=== PATIENT | female | born 1990 | race Caucasian/White ===

== ENCOUNTER 2016-08-28 00:10 | Inpatient (IN) | payer MEDICAID, OTHER ==
[~2016-08-28] VITALS: Ht 154.9 cm; Wt 89.3 kg
[~2016-08-28 00:10] MED LIST: ALBU6.7H IH; CITA10TA68 PO; DIVA500T52 PO; DSS100 PO; MACR100 PO; OMEP20 PO; QUET300T2 PO
[2016-08-28] MEDS ORDERED: DiphenhydrAMINE HCL 50 MG/ML VIAL IM ONE (00:45)
[2016-08-28] MEDS ORDERED: HALOPERIDOL LACTATE 5 MG/ML VIAL IM ONE (00:45)
[2016-08-28] MEDS ORDERED: LORazepam 2 MG/ML VIAL IM ONE (00:45)
[2016-08-28 01:35] LABS: BASOPHILS # (AUTO) 0.03 K/uL (0.00-0.20); BASOPHILS % (AUTO) 0.5 % (0.0-2.0); EOSINOPHILS # (AUTO) 0.23 K/uL (0.00-0.70); EOSINOPHILS % (AUTO) 3.68 % (1.0-6.0); HEMATOCRIT 35.7 % (36-46); HEMOGLOBIN 11.8 g/dL (12.0-16.0); LYMPHOCYTES # (AUTO) 1.4 K/uL (1.0-4.8); LYMPHOCYTES % (AUTO) 22.1 % (22.0-44.0); MEAN CORPUSCULAR HEMOGLOBIN 27.8 pg (26.0-34.0); MEAN CORPUSCULAR HGB CONC 33.2 G/dL (31.0-37.0); MEAN CORPUSCULAR VOLUME 84 fL (80-100); MONOCYTES # (AUTO) 0.5 K/uL (0.1-1.0); MONOCYTES % (AUTO) 7.6 % (2.0-9.0); NEUTROPHILS # (AUTO) 4.2 K/uL (1.8-7.7); NEUTROPHILS % (AUTO) 66.2 % (40.0-70.0); PLATELET COUNT (AUTO) 273 K/uL (150-450); RED BLOOD CELL COUNT(AUTO) 4.26 MIL/uL (4.00-5.20); RED CELL DISTRIBUTION WIDTH 16.1 % (11.5-14.5); WHITE BLOOD COUNT (AUTO) 6.4 K/uL (4.5-11.0)
[2016-08-28 01:48] LABS: ANION GAP 12 mmol/L (8-16); CALCIUM, TOTAL 8.7 mg/dL (8.8-10.5); CARBON DIOXIDE 24 mmol/L (22-29); CHLORIDE 108 mmol/L (98-107); CREATININE 0.93 mg/dL (0.60-1.30); GLOMERULAR FILTR. RATE CALC > 60 mL/min (>60); POTASSIUM 3.3 mmol/L (3.5-5.1); SODIUM SERUM 144 mmol/L (136-145); UREA NITROGEN, BLOOD 9 mg/dL (7-18)
[2016-08-28 01:53] LABS: ALANINE AMINOTRANSFERASE 28 U/L (12-78); ALBUMIN 3.6 g/dL (3.4-5.0); ASPARTATE AMINOTRANSFERASE 17 U/L (15-37); BILIRUBIN,TOTAL 0.2 mg/dL (0.1-1.0)
[2016-08-28 02:07] LABS: VALPROIC ACID < 3 mcg/mL (50-100)
[2016-08-28] MEDS ORDERED: HALOPERIDOL 5 MG TABLET PO PRN (02:15)
[2016-08-28] MEDS ORDERED: ACETAMINOPHEN 325 MG TABLET PO PRN (13:30)
[2016-08-28 13:51] VITALS: BP 136/78
[2016-08-28] MEDS ORDERED: POTASSIUM CHLORIDE 20 MEQ ER TABLET PO ONE (14:15)
[2016-08-28] MEDS: NICOTINE 14 MG/24 HOUR PATCH TD SCH (14:17)
[2016-08-28] MEDS ORDERED: INFLUENZA VIRUS VACCINE QVS 2016-17 (3YR+)/PF 60 MCG/0.5 ML SYRINGE IM ONE (15:00)
[2016-08-28] MEDS ORDERED: -PHARMACY VACCINE NOTE- MISC ONE ×2 (15:00)
[2016-08-28 16:10] VITALS: BP 114/67
[2016-08-28] MEDS: ZOLPIDEM TARTRATE 10 MG TABLET PO PRN (20:20)
[2016-08-29 06:56] VITALS: BP 125/72
[2016-08-29] MEDS: NICOTINE 14 MG/24 HOUR PATCH TD SCH (08:27)
[2016-08-29 08:28] VITALS: BP 134/87
[2016-08-29 08:43] LABS: ALANINE AMINOTRANSFERASE 20 U/L (12-78); ALBUMIN 3.8 g/dL (3.4-5.0); ANION GAP 10 mmol/L (8-16); ASPARTATE AMINOTRANSFERASE 17 U/L (15-37); BILIRUBIN,TOTAL 0.3 mg/dL (0.1-1.0); CALCIUM, TOTAL 8.8 mg/dL (8.8-10.5); CARBON DIOXIDE 26 mmol/L (22-29); CHLORIDE 103 mmol/L (98-107); CREATININE 0.68 mg/dL (0.60-1.30); GLOMERULAR FILTR. RATE CALC > 60 mL/min (>60); POTASSIUM 4.9 mmol/L (3.5-5.1); SODIUM SERUM 139 mmol/L (136-145); TOTAL PROTEIN, SERUM 6.9 g/dL (6.4-8.2); UREA NITROGEN, BLOOD 11 mg/dL (7-18)
[2016-08-29] MEDS: LORazepam 2 MG TABLET PO PRN ×2 (10:45→16:08)
[2016-08-29] MEDS: QUEtiapine FUMARATE 200 MG TABLET PO SCH (16:07)
[2016-08-29 16:18] VITALS: BP 117/70
[2016-08-29] MEDS: DIVALPROEX SODIUM 500 MG DR TABLET PO SCH (20:28)
[2016-08-30 06:34] VITALS: BP 112/73
[2016-08-30] MEDS: QUEtiapine FUMARATE 200 MG TABLET PO SCH ×2 (08:26→16:10)
[2016-08-30] MEDS: DOCUSATE SODIUM 100 MG CAPSULE PO SCH (08:26)
[2016-08-30] MEDS: OMEPRAZOLE 20 MG CAPSULE PO SCH (08:26)
[2016-08-30] MEDS: NICOTINE 14 MG/24 HOUR PATCH TD SCH (08:27)
[2016-08-30 09:07] VITALS: BP 100/59
[2016-08-30] MEDS: LORazepam 2 MG TABLET PO PRN ×2 (11:44→16:10)
[2016-08-30 16:09] VITALS: BP 122/86
[2016-08-30] MEDS: DIVALPROEX SODIUM 500 MG DR TABLET PO SCH (20:06)
[2016-08-30] MEDS: ZOLPIDEM TARTRATE 10 MG TABLET PO PRN (21:04)
[2016-08-31 06:47] VITALS: BP 116/68
[2016-08-31] MEDS: LORazepam 2 MG TABLET PO PRN ×3 (07:13→16:50)
[2016-08-31 08:13] VITALS: BP 113/76
[2016-08-31] MEDS: DOCUSATE SODIUM 100 MG CAPSULE PO SCH (08:30)
[2016-08-31] MEDS: QUEtiapine FUMARATE 200 MG TABLET PO SCH ×2 (08:30→16:50)
[2016-08-31] MEDS: OMEPRAZOLE 20 MG CAPSULE PO SCH (08:30)
[2016-08-31] MEDS: NICOTINE 14 MG/24 HOUR PATCH TD SCH (08:31)
[2016-08-31 16:06] VITALS: BP 118/73
[2016-08-31] MEDS: DIVALPROEX SODIUM 500 MG DR TABLET PO SCH (21:00)
[2016-09-01 07:02] VITALS: BP 114/66
[2016-09-01] MEDS: DOCUSATE SODIUM 100 MG CAPSULE PO SCH (08:26)
[2016-09-01] MEDS: OMEPRAZOLE 20 MG CAPSULE PO SCH (08:26)
[2016-09-01] MEDS: QUEtiapine FUMARATE 200 MG TABLET PO SCH ×2 (08:27→16:34)
[2016-09-01] MEDS: NICOTINE 14 MG/24 HOUR PATCH TD SCH (08:27)
[2016-09-01] MEDS: LORazepam 2 MG TABLET PO PRN (10:35)
[2016-09-01] MEDS ORDERED: HALOPERIDOL LACTATE 5 MG/ML VIAL IM ONE ×2 (16:00→16:15)
[2016-09-01] MEDS ORDERED: LORazepam 2 MG/ML VIAL IM ONE (16:00)
[2016-09-01 16:04] VITALS: BP 118/67
[2016-09-01 16:35] VITALS: BP 124/74
[2016-09-01] MEDS: DIVALPROEX SODIUM 500 MG DR TABLET PO SCH (21:00)
[2016-09-02 08:02] VITALS: BP 114/71
[2016-09-02] MEDS: QUEtiapine FUMARATE 200 MG TABLET PO SCH ×2 (09:07→16:13)
[2016-09-02] MEDS: OMEPRAZOLE 20 MG CAPSULE PO SCH (09:07)
[2016-09-02] MEDS: NICOTINE 14 MG/24 HOUR PATCH TD SCH (09:07)
[2016-09-02] MEDS: LORazepam 2 MG TABLET PO PRN ×2 (09:07→14:18)
[2016-09-02] MEDS: DOCUSATE SODIUM 100 MG CAPSULE PO SCH (09:07)
[2016-09-02 16:07] VITALS: BP 120/86
[2016-09-02] MEDS: DIVALPROEX SODIUM 500 MG DR TABLET PO SCH (20:12)
[2016-09-02] MEDS: ZOLPIDEM TARTRATE 10 MG TABLET PO PRN (21:00)
[2016-09-03 07:11] VITALS: BP 110/73
[2016-09-03] MEDS: DOCUSATE SODIUM 100 MG CAPSULE PO SCH (08:19)
[2016-09-03] MEDS: NICOTINE 14 MG/24 HOUR PATCH TD SCH (08:19)
[2016-09-03] MEDS: QUEtiapine FUMARATE 200 MG TABLET PO SCH ×2 (08:19→16:51)
[2016-09-03] MEDS: OMEPRAZOLE 20 MG CAPSULE PO SCH (08:19)
[2016-09-03 08:52] VITALS: BP 119/71
[2016-09-03] MEDS: LORazepam 2 MG TABLET PO PRN ×2 (09:12→16:51)
[2016-09-03 16:03] VITALS: BP 116/84
[2016-09-03] MEDS ORDERED: DOCUSATE SODIUM 100 MG CAPSULE PO PRN (17:30)
[2016-09-03] MEDS: DIVALPROEX SODIUM 500 MG DR TABLET PO SCH (20:08)
[2016-09-04 07:07] VITALS: BP 110/72
[2016-09-04] MEDS: OMEPRAZOLE 20 MG CAPSULE PO SCH (08:18)
[2016-09-04] MEDS: NICOTINE 14 MG/24 HOUR PATCH TD SCH (08:18)
[2016-09-04] MEDS: DOCUSATE SODIUM 100 MG CAPSULE PO SCH (08:18)
[2016-09-04] MEDS: QUEtiapine FUMARATE 200 MG TABLET PO SCH (08:18)
[2016-09-04 09:04] VITALS: BP 112/59
== END 2016-09-04 12:53 | disposition home or self-care (01) | DRG 753 ==
LOC: EMS 00:12 → EEVIPCON 00:12 → B3A 11:55
PROVIDERS: ADMIT Psychiatry & Neurology Psychiatry; ATTEND Psychiatry & Neurology Psychiatry
DX: F31.9 Bipolar disorder, unspecified (principal); R45.851 Suicidal ideations; E55.9 Vitamin D deficiency, unspecified; F43.10 Post-traumatic stress disorder, unspecified; K59.00 Constipation, unspecified; E66.9 Obesity, unspecified; D64.9 Anemia, unspecified; E87.6 Hypokalemia; K64.9 Unspecified hemorrhoids; J45.909 Unspecified asthma, uncomplicated; F12.90 Cannabis use, unspecified, uncomplicated; F17.210 Nicotine dependence, cigarettes, uncomplicated; Z71.6 Tobacco abuse counseling; Z79.899 Other long term (current) drug therapy; Z98.890 Other specified postprocedural states; Z68.37 Body mass index [BMI] 37.0-37.9, adult; Z28.21 Immunization not carried out because of patient refusal; Z87.891 Personal history of nicotine dependence
CPT/HCPCS: 96372; 99285; G0480; J1200; J1630; J2060

== ENCOUNTER 2016-09-09 11:11 | Inpatient (IN) | payer MEDICAID, OTHER ==
[~2016-09-09] VITALS: Ht 154.9 cm; Wt 91.4 kg
[~2016-09-09 11:11] MED LIST changes: -ALBU6.7H IH; -CITA10TA68 PO; -MACR100 PO
[2016-09-09] MEDS ORDERED: CITA20TA9 PO (11:24)
[2016-09-09 11:43] LABS: BASOPHILS % (AUTO) 0.6 % (0.0-2.0); EOSINOPHILS % (AUTO) 0.8 % (1.0-6.0); HEMOGLOBIN 11.8 g/dL (12.0-16.0); LYMPHOCYTES # (AUTO) 1.6 K/uL (1.0-4.8); LYMPHOCYTES % (AUTO) 22.7 % (22.0-44.0); MEAN CORPUSCULAR HEMOGLOBIN 26.9 pg (26.0-34.0); MEAN CORPUSCULAR HGB CONC 32.7 G/dL (31.0-37.0); MEAN CORPUSCULAR VOLUME 82 fL (80-100); MONOCYTES # (AUTO) 0.4 K/uL (0.1-1.0); MONOCYTES % (AUTO) 5.3 % (2.0-9.0); NEUTROPHILS % (AUTO) 70.6 % (40.0-70.0); PLATELET COUNT (AUTO) 325 K/uL (150-450); RED BLOOD CELL COUNT(AUTO) 4.36 MIL/uL (4.00-5.20); RED CELL DISTRIBUTION WIDTH 14.8 % (11.5-14.5); WHITE BLOOD COUNT (AUTO) 7.1 K/uL (4.5-11.0)
[2016-09-09 12:07] LABS: ANION GAP 9 mmol/L (8-16); CALCIUM, TOTAL 9.5 mg/dL (8.8-10.5); CARBON DIOXIDE 28 mmol/L (22-29); CHLORIDE 104 mmol/L (98-107); CREATININE 0.75 mg/dL (0.60-1.30); GLOMERULAR FILTR. RATE CALC > 60 mL/min (>60); POTASSIUM 3.5 mmol/L (3.5-5.1); SODIUM SERUM 141 mmol/L (136-145); UREA NITROGEN, BLOOD 8 mg/dL (7-18)
[2016-09-09 12:13] LABS: ALANINE AMINOTRANSFERASE 30 U/L (12-78); ASPARTATE AMINOTRANSFERASE 19 U/L (15-37); BILIRUBIN,TOTAL 0.4 mg/dL (0.1-1.0); TOTAL PROTEIN, SERUM 7.7 g/dL (6.4-8.2)
[2016-09-09 12:22] LABS: VALPROIC ACID < 3 mcg/mL (50-100)
[2016-09-09 14:53] VITALS: BP 128/88
[2016-09-09] MEDS ORDERED: INFLUENZA VIRUS VACCINE QVS 2016-17 (3YR+)/PF 60 MCG/0.5 ML SYRINGE IM ONE (15:45)
[2016-09-09 16:00] VITALS: BP 117/88
[2016-09-09] MEDS: QUEtiapine FUMARATE 200 MG TABLET PO SCH (17:44)
[2016-09-09] MEDS: NICOTINE 14 MG/24 HOUR PATCH TD SCH (19:09)
[2016-09-09] MEDS: LORazepam 2 MG TABLET PO PRN (20:20)
[2016-09-10] MEDS: CITALOPRAM HYDROBROMIDE 20 MG TABLET PO SCH (08:42)
[2016-09-10] MEDS: QUEtiapine FUMARATE 200 MG TABLET PO SCH ×2 (08:42→17:50)
[2016-09-10] MEDS: NICOTINE 14 MG/24 HOUR PATCH TD SCH (08:43)
[2016-09-10 08:59] VITALS: BP 125/52
[2016-09-10] MEDS: HALOPERIDOL 5 MG TABLET PO PRN ×2 (12:30→15:00)
[2016-09-10] MEDS: LORazepam 2 MG TABLET PO PRN ×2 (12:30→14:58)
[2016-09-11] MEDS: LORazepam 2 MG TABLET PO PRN ×2 (07:51→15:59)
[2016-09-11] MEDS: QUEtiapine FUMARATE 200 MG TABLET PO SCH ×2 (07:51→16:11)
[2016-09-11] MEDS: CITALOPRAM HYDROBROMIDE 20 MG TABLET PO SCH (07:51)
[2016-09-11] MEDS: NICOTINE 14 MG/24 HOUR PATCH TD SCH (07:51)
[2016-09-11] MEDS: HALOPERIDOL 5 MG TABLET PO PRN (07:51)
[2016-09-11 08:30] VITALS: BP 126/71
[2016-09-11 16:00] VITALS: BP 118/70
[2016-09-11] MEDS ORDERED: MAGNESIUM CITRATE 300 ML ORAL SOLUTION PO ONE (17:15)
[2016-09-11] MEDS: ZOLPIDEM TARTRATE 10 MG TABLET PO PRN (21:08)
[2016-09-12] MEDS: QUEtiapine FUMARATE 200 MG TABLET PO SCH ×2 (08:24→16:14)
[2016-09-12] MEDS: LORazepam 2 MG TABLET PO PRN ×2 (08:24→15:42)
[2016-09-12] MEDS: CITALOPRAM HYDROBROMIDE 20 MG TABLET PO SCH (08:24)
[2016-09-12] MEDS: NICOTINE 14 MG/24 HOUR PATCH TD SCH (08:27)
[2016-09-12 08:30] VITALS: BP 127/95
[2016-09-12] MEDS ORDERED: QUET200T PO (11:00)
[2016-09-12] MEDS: HALOPERIDOL 5 MG TABLET PO PRN ×2 (11:19→19:33)
[2016-09-12 16:00] VITALS: BP 110/77
[2016-09-13] MEDS: LORazepam 2 MG TABLET PO PRN ×2 (07:32→12:06)
[2016-09-13] MEDS: HALOPERIDOL 5 MG TABLET PO PRN ×3 (07:32→18:53)
[2016-09-13 08:05] VITALS: BP 109/67
[2016-09-13] MEDS: NICOTINE 14 MG/24 HOUR PATCH TD SCH (08:15)
[2016-09-13] MEDS: CITALOPRAM HYDROBROMIDE 20 MG TABLET PO SCH (08:16)
[2016-09-13] MEDS: QUEtiapine FUMARATE 200 MG TABLET PO SCH ×2 (08:16→16:04)
[2016-09-13 16:20] VITALS: BP 122/69
[2016-09-13] MEDS: ZOLPIDEM TARTRATE 10 MG TABLET PO PRN (20:39)
[2016-09-14] MEDS: HALOPERIDOL 5 MG TABLET PO PRN (07:59)
[2016-09-14] MEDS: LORazepam 2 MG TABLET PO PRN ×3 (07:59→20:26)
[2016-09-14 08:05] VITALS: BP 145/80
[2016-09-14] MEDS: QUEtiapine FUMARATE 200 MG TABLET PO SCH ×2 (08:41→16:35)
[2016-09-14] MEDS: CITALOPRAM HYDROBROMIDE 20 MG TABLET PO SCH (08:41)
[2016-09-14] MEDS: NICOTINE 14 MG/24 HOUR PATCH TD SCH (08:41)
[2016-09-14 17:08] VITALS: BP 121/65
[2016-09-14] MEDS: ZOLPIDEM TARTRATE 10 MG TABLET PO PRN (20:56)
[2016-09-15] MEDS: QUEtiapine FUMARATE 200 MG TABLET PO SCH ×2 (08:01→19:13)
[2016-09-15] MEDS: CITALOPRAM HYDROBROMIDE 20 MG TABLET PO SCH (08:01)
[2016-09-15] MEDS: NICOTINE 14 MG/24 HOUR PATCH TD SCH (08:02)
[2016-09-15 08:33] VITALS: BP 122/57
[2016-09-15] MEDS: MAGNESIUM HYDROXIDE SUSPENSION 30 ML UDCUP PO PRN (10:15)
[2016-09-15] MEDS: HALOPERIDOL 5 MG TABLET PO PRN (12:40)
[2016-09-15] MEDS: LORazepam 2 MG TABLET PO PRN (12:40)
[2016-09-15 16:33] VITALS: BP 119/68
[2016-09-16] MEDS: LORazepam 2 MG TABLET PO PRN ×2 (06:27→07:53)
[2016-09-16] MEDS: CITALOPRAM HYDROBROMIDE 20 MG TABLET PO SCH (07:53)
[2016-09-16] MEDS: NICOTINE 14 MG/24 HOUR PATCH TD SCH (07:53)
[2016-09-16] MEDS: QUEtiapine FUMARATE 200 MG TABLET PO SCH (07:53)
[2016-09-16] MEDS: HALOPERIDOL 5 MG TABLET PO PRN (07:53)
[2016-09-16] MEDS: MAGNESIUM HYDROXIDE SUSPENSION 30 ML UDCUP PO PRN (07:56)
[2016-09-16 09:00] VITALS: BP 99/58
== END 2016-09-16 15:40 | disposition home or self-care (01) | DRG 750 ==
LOC: EMS 11:12 → 3EC 14:01
PROVIDERS: ADMIT Psychiatry & Neurology Psychiatry; ATTEND Psychiatry & Neurology Psychiatry
DX: F25.9 Schizoaffective disorder, unspecified (principal); R45.851 Suicidal ideations; F22 Delusional disorders; D72.829 Elevated white blood cell count, unspecified; L30.9 Dermatitis, unspecified; F43.10 Post-traumatic stress disorder, unspecified; F31.9 Bipolar disorder, unspecified; F17.210 Nicotine dependence, cigarettes, uncomplicated; F19.10 Other psychoactive substance abuse, uncomplicated; Z71.89 Other specified counseling; Z28.21 Immunization not carried out because of patient refusal
CPT/HCPCS: 87081; 99285; G0480

== ENCOUNTER 2016-09-26 16:56 | Inpatient (IN) | payer MEDICAID, OTHER ==
[~2016-09-26] VITALS: Ht 154.9 cm; Wt 87.5 kg
[~2016-09-26 16:56] MED LIST changes: +CITA20TA9 PO; -DIVA500T52 PO; -DSS100 PO; -OMEP20 PO; +QUET200T PO; -QUET300T2 PO
[2016-09-26 19:33] LABS: BASOPHILS % (AUTO) 0.3 % (0.0-2.0); EOSINOPHILS % (AUTO) 0.7 % (1.0-6.0); HEMATOCRIT 33.7 % (36-46); LYMPHOCYTES # (AUTO) 1.4 K/uL (1.0-4.8); LYMPHOCYTES % (AUTO) 17.5 % (22.0-44.0); MEAN CORPUSCULAR HEMOGLOBIN 27.4 pg (26.0-34.0); MEAN CORPUSCULAR HGB CONC 32.7 G/dL (31.0-37.0); MEAN CORPUSCULAR VOLUME 84 fL (80-100); MONOCYTES # (AUTO) 0.4 K/uL (0.1-1.0); MONOCYTES % (AUTO) 5.1 % (2.0-9.0); NEUTROPHILS # (AUTO) 5.9 K/uL (1.8-7.7); NEUTROPHILS % (AUTO) 76.4 % (40.0-70.0); PLATELET COUNT (AUTO) 292 K/uL (150-450); RED BLOOD CELL COUNT(AUTO) 4.03 MIL/uL (4.00-5.20); RED CELL DISTRIBUTION WIDTH 15.4 % (11.5-14.5); WHITE BLOOD COUNT (AUTO) 7.7 K/uL (4.5-11.0)
[2016-09-26 19:41] LABS: ANION GAP 7 mmol/L (8-16); CARBON DIOXIDE 27 mmol/L (22-29); CHLORIDE 108 mmol/L (98-107); CREATININE 0.98 mg/dL (0.60-1.30); GLOMERULAR FILTR. RATE CALC > 60 mL/min (>60); POTASSIUM 3.8 mmol/L (3.5-5.1); SODIUM SERUM 142 mmol/L (136-145); UREA NITROGEN, BLOOD 10 mg/dL (7-18)
[2016-09-26] MEDS ORDERED: ZOLPIDEM TARTRATE 10 MG TABLET PO PRN (19:45)
[2016-09-26 19:47] LABS: ALANINE AMINOTRANSFERASE 27 U/L (12-78); ALBUMIN 3.8 g/dL (3.4-5.0); ASPARTATE AMINOTRANSFERASE 16 U/L (15-37); BILIRUBIN,TOTAL 0.2 mg/dL (0.1-1.0); TOTAL PROTEIN, SERUM 7.1 g/dL (6.4-8.2)
[2016-09-26] MEDS: LORazepam 2 MG TABLET PO PRN (20:19)
[2016-09-26] MEDS: HALOPERIDOL 5 MG TABLET PO PRN (20:19)
[2016-09-27 06:27] VITALS: BP 125/74
[2016-09-27] MEDS ORDERED: ALBUTEROL SULFATE HFA 90 MCG/PUFF 8 GM INHALER IH PRN (07:30)
[2016-09-27] MEDS ORDERED: -PHARMACY VACCINE NOTE- MISC ONE ×2 (07:30)
[2016-09-27 09:00] VITALS: BP 100/52
[2016-09-27] MEDS: CITALOPRAM HYDROBROMIDE 20 MG TABLET PO SCH (09:03)
[2016-09-27] MEDS: QUEtiapine FUMARATE 200 MG TABLET PO SCH ×2 (09:03→16:19)
[2016-09-27 16:08] VITALS: BP 106/58
[2016-09-27] MEDS: MAGNESIUM HYDROXIDE SUSPENSION 30 ML UDCUP PO PRN (17:22)
[2016-09-27 20:10] VITALS: BP 110/66
[2016-09-27] MEDS: HALOPERIDOL 5 MG TABLET PO PRN (20:15)
[2016-09-27] MEDS ORDERED: IBUPROFEN 400 MG TABLET PO PRN (23:30)
[2016-09-27] MEDS ORDERED: ACETAMINOPHEN 325 MG TABLET PO PRN (23:30)
[2016-09-28 06:09] VITALS: BP 112/76
[2016-09-28] MEDS: LORazepam 2 MG TABLET PO PRN ×3 (06:49→16:57)
[2016-09-28] MEDS: CITALOPRAM HYDROBROMIDE 20 MG TABLET PO SCH (08:24)
[2016-09-28] MEDS: QUEtiapine FUMARATE 200 MG TABLET PO SCH ×2 (08:24→16:57)
[2016-09-28 08:31] VITALS: BP 118/67
[2016-09-28 08:57] LABS: HEMOGLOBIN A1C 5.4 % (4.5-6.2)
[2016-09-28 09:09] LABS: CHOL/HDL RATIO 2.6 (3.9-5.7); THYROID STIMULATING HORMONE 2.37 uIU/mL (0.36-3.74)
[2016-09-28] MEDS: HALOPERIDOL 5 MG TABLET PO PRN (12:33)
[2016-09-28 16:23] VITALS: BP 112/82
[2016-09-29 06:46] VITALS: BP 109/88
[2016-09-29] MEDS: MAGNESIUM HYDROXIDE SUSPENSION 30 ML UDCUP PO PRN (06:54)
[2016-09-29] MEDS: LORazepam 2 MG TABLET PO PRN ×3 (06:54→16:44)
[2016-09-29] MEDS: QUEtiapine FUMARATE 200 MG TABLET PO SCH ×2 (08:05→16:44)
[2016-09-29] MEDS: CITALOPRAM HYDROBROMIDE 20 MG TABLET PO SCH (08:06)
[2016-09-29] MEDS: HALOPERIDOL 5 MG TABLET PO PRN (08:35)
[2016-09-29 09:00] VITALS: BP 123/76
[2016-09-29 16:00] VITALS: BP 127/73
[2016-09-30 06:25] VITALS: BP 120/72
[2016-09-30] MEDS: HALOPERIDOL 5 MG TABLET PO PRN ×2 (06:28→15:49)
[2016-09-30 07:12] VITALS: BP 118/68
[2016-09-30] MEDS: LORazepam 2 MG TABLET PO PRN (07:13)
[2016-09-30] MEDS: CITALOPRAM HYDROBROMIDE 20 MG TABLET PO SCH (08:00)
[2016-09-30] MEDS: QUEtiapine FUMARATE 200 MG TABLET PO SCH ×2 (08:00→16:00)
[2016-09-30] MEDS: NICOTINE 7 MG/24 HOUR PATCH TD SCH (08:00)
[2016-09-30 08:12] VITALS: BP 130/77
[2016-09-30] MEDS: MAGNESIUM HYDROXIDE SUSPENSION 30 ML UDCUP PO PRN (13:35)
[2016-09-30 16:15] VITALS: BP 107/74
[2016-10-01 03:51] VITALS: BP 92/60
[2016-10-01] MEDS: QUEtiapine FUMARATE 200 MG TABLET PO SCH ×2 (08:07→16:33)
[2016-10-01] MEDS: CITALOPRAM HYDROBROMIDE 20 MG TABLET PO SCH (08:07)
[2016-10-01] MEDS: NICOTINE 7 MG/24 HOUR PATCH TD SCH (08:08)
[2016-10-01] MEDS: LORazepam 2 MG TABLET PO PRN (08:10)
[2016-10-01 08:20] VITALS: BP 107/65
[2016-10-01] MEDS: HALOPERIDOL 5 MG TABLET PO PRN (09:11)
[2016-10-01 16:00] VITALS: BP 121/74
[2016-10-01] MEDS: MAGNESIUM HYDROXIDE SUSPENSION 30 ML UDCUP PO PRN (16:33)
[2016-10-02 06:31] VITALS: BP 112/68
[2016-10-02] MEDS: QUEtiapine FUMARATE 200 MG TABLET PO SCH ×2 (08:21→16:30)
[2016-10-02] MEDS: CITALOPRAM HYDROBROMIDE 20 MG TABLET PO SCH (08:21)
[2016-10-02] MEDS: NICOTINE 7 MG/24 HOUR PATCH TD SCH (08:22)
[2016-10-02] MEDS: LORazepam 2 MG TABLET PO PRN (08:22)
[2016-10-02 08:35] VITALS: BP 110/76
[2016-10-02] MEDS: HALOPERIDOL 5 MG TABLET PO PRN (08:56)
[2016-10-02 16:08] VITALS: BP 117/67
[2016-10-03 07:12] VITALS: BP 115/72
[2016-10-03] MEDS: CITALOPRAM HYDROBROMIDE 20 MG TABLET PO SCH (08:10)
[2016-10-03] MEDS: QUEtiapine FUMARATE 200 MG TABLET PO SCH (08:10)
[2016-10-03] MEDS: NICOTINE 7 MG/24 HOUR PATCH TD SCH (08:10)
[2016-10-03] MEDS: LORazepam 2 MG TABLET PO PRN (08:18)
[2016-10-03 08:28] VITALS: BP 117/67
== END 2016-10-03 13:45 | disposition home or self-care (01) | DRG 750 ==
LOC: EMS 17:01 → B3A 09-27 04:30
PROVIDERS: ADMIT Psychiatry & Neurology Child & Adolescent Psychiatry; ATTEND Psychiatry & Neurology Psychiatry
DX: F25.0 Schizoaffective disorder, bipolar type (principal); R45.851 Suicidal ideations; Z59.0 Homelessness; F12.90 Cannabis use, unspecified, uncomplicated; F43.10 Post-traumatic stress disorder, unspecified; F17.210 Nicotine dependence, cigarettes, uncomplicated; J45.909 Unspecified asthma, uncomplicated; I10 Essential (primary) hypertension; K59.00 Constipation, unspecified
CPT/HCPCS: 83036; 84443; 87081; 99285; 99406; G0480

== ENCOUNTER 2016-10-07 11:24 | Inpatient (IN) | payer MEDICAID, OTHER ==
[~2016-10-07] VITALS: Ht 154.9 cm; Wt 86.0 kg
[2016-10-07 11:58] LABS: BASOPHILS % (AUTO) 0.8 % (0.0-2.0); LYMPHOCYTES # (AUTO) 1.6 K/uL (1.0-4.8); LYMPHOCYTES % (AUTO) 21.9 % (22.0-44.0); MEAN CORPUSCULAR HGB CONC 32.4 G/dL (31.0-37.0); MEAN CORPUSCULAR VOLUME 83 fL (80-100); MONOCYTES # (AUTO) 0.5 K/uL (0.1-1.0); MONOCYTES % (AUTO) 6.6 % (2.0-9.0); NEUTROPHILS % (AUTO) 67.7 % (40.0-70.0); PLATELET COUNT (AUTO) 305 K/uL (150-450); RED BLOOD CELL COUNT(AUTO) 4.44 MIL/uL (4.00-5.20); RED CELL DISTRIBUTION WIDTH 15.3 % (11.5-14.5); WHITE BLOOD COUNT (AUTO) 7.4 K/uL (4.5-11.0)
[2016-10-07] MEDS ORDERED: ZOLPIDEM TARTRATE 10 MG TABLET PO PRN (12:15)
[2016-10-07 12:16] LABS: ANION GAP 9 mmol/L (8-16); CALCIUM, TOTAL 9.2 mg/dL (8.8-10.5); CARBON DIOXIDE 25 mmol/L (22-29); CHLORIDE 105 mmol/L (98-107); CREATININE 0.71 mg/dL (0.60-1.30); GLOMERULAR FILTR. RATE CALC > 60 mL/min (>60); POTASSIUM 3.9 mmol/L (3.5-5.1); SODIUM SERUM 139 mmol/L (136-145); UREA NITROGEN, BLOOD 13 mg/dL (7-18)
[2016-10-07 12:21] LABS: ALANINE AMINOTRANSFERASE 27 U/L (12-78); ALBUMIN 3.9 g/dL (3.4-5.0); ASPARTATE AMINOTRANSFERASE 23 U/L (15-37); BILIRUBIN,TOTAL 0.4 mg/dL (0.1-1.0); TOTAL PROTEIN, SERUM 7.6 g/dL (6.4-8.2)
[2016-10-07] MEDS ORDERED: LORazepam 2 MG TABLET PO ONE (13:30)
[2016-10-07] MEDS ORDERED: HALOPERIDOL 5 MG TABLET PO ONE (13:30)
[2016-10-07 16:42] VITALS: BP 110/68
[2016-10-07] MEDS ORDERED: ACETAMINOPHEN 325 MG TABLET PO PRN (17:45)
[2016-10-08 06:26] VITALS: BP 115/72
[2016-10-08 08:16] VITALS: BP 111/54
[2016-10-08] MEDS: LORazepam 2 MG TABLET PO PRN (08:23)
[2016-10-08] MEDS: NYSTATIN 500,000 UNITS/5 ML SUSPENSION UDCUP PO SCH ×2 (08:23→17:11)
[2016-10-08] MEDS: HALOPERIDOL 5 MG TABLET PO PRN (08:23)
[2016-10-08] MEDS: CITALOPRAM HYDROBROMIDE 20 MG TABLET PO SCH (12:08)
[2016-10-08 16:10] VITALS: BP 105/64
[2016-10-08] MEDS: QUEtiapine FUMARATE 200 MG TABLET PO SCH (17:11)
[2016-10-09 06:46] VITALS: BP 109/60
[2016-10-09] MEDS: NYSTATIN 500,000 UNITS/5 ML SUSPENSION UDCUP PO SCH ×2 (08:02→16:12)
[2016-10-09] MEDS: QUEtiapine FUMARATE 200 MG TABLET PO SCH ×2 (08:03→16:12)
[2016-10-09] MEDS: LORazepam 2 MG TABLET PO PRN ×2 (08:03→17:46)
[2016-10-09] MEDS: CITALOPRAM HYDROBROMIDE 20 MG TABLET PO SCH (08:03)
[2016-10-09 08:21] VITALS: BP 113/58
[2016-10-09 08:29] LABS: CHOL/HDL RATIO 3.2 (3.9-5.7)
[2016-10-09] MEDS: HALOPERIDOL 5 MG TABLET PO PRN ×2 (09:17→18:05)
[2016-10-09] MEDS: MAGNESIUM HYDROXIDE SUSPENSION 30 ML UDCUP PO PRN (16:12)
[2016-10-09 16:16] VITALS: BP 110/65
[2016-10-09 17:47] VITALS: BP 115/68
[2016-10-10 08:21] VITALS: BP 124/83
[2016-10-10] MEDS: CITALOPRAM HYDROBROMIDE 20 MG TABLET PO SCH (08:38)
[2016-10-10] MEDS: QUEtiapine FUMARATE 200 MG TABLET PO SCH ×2 (08:38→16:12)
[2016-10-10] MEDS: LORazepam 2 MG TABLET PO PRN (08:38)
[2016-10-10] MEDS: NYSTATIN 500,000 UNITS/5 ML SUSPENSION UDCUP PO SCH ×2 (10:17→16:31)
[2016-10-10] MEDS: IBUPROFEN 400 MG TABLET PO PRN (11:51)
[2016-10-10] MEDS: HALOPERIDOL 5 MG TABLET PO PRN (13:11)
[2016-10-10] MEDS: NICOTINE 7 MG/24 HOUR PATCH TD SCH (13:12)
[2016-10-10 16:04] VITALS: BP 112/80
[2016-10-11] MEDS: HALOPERIDOL 5 MG TABLET PO PRN ×2 (05:21→09:19)
[2016-10-11 06:00] VITALS: BP 110/71
[2016-10-11] MEDS: NYSTATIN 500,000 UNITS/5 ML SUSPENSION UDCUP PO SCH ×2 (08:19→16:46)
[2016-10-11] MEDS: CITALOPRAM HYDROBROMIDE 20 MG TABLET PO SCH (08:19)
[2016-10-11] MEDS: QUEtiapine FUMARATE 200 MG TABLET PO SCH ×2 (08:19→16:23)
[2016-10-11 08:20] VITALS: BP 115/69
[2016-10-11] MEDS: LORazepam 2 MG TABLET PO PRN (08:31)
[2016-10-11] MEDS: MAGNESIUM HYDROXIDE SUSPENSION 30 ML UDCUP PO PRN (08:31)
[2016-10-11] MEDS: NICOTINE 7 MG/24 HOUR PATCH TD SCH (08:32)
[2016-10-11 16:21] VITALS: BP 102/63
[2016-10-12 04:16] VITALS: BP 105/70
[2016-10-12] MEDS: MAGNESIUM HYDROXIDE SUSPENSION 30 ML UDCUP PO PRN (06:32)
[2016-10-12] MEDS: QUEtiapine FUMARATE 200 MG TABLET PO SCH ×2 (08:19→16:24)
[2016-10-12] MEDS: CITALOPRAM HYDROBROMIDE 20 MG TABLET PO SCH (08:19)
[2016-10-12] MEDS: NYSTATIN 500,000 UNITS/5 ML SUSPENSION UDCUP PO SCH ×2 (08:19→16:24)
[2016-10-12] MEDS: NICOTINE 7 MG/24 HOUR PATCH TD SCH (08:19)
[2016-10-12] MEDS: LORazepam 2 MG TABLET PO PRN (08:21)
[2016-10-12 08:36] VITALS: BP 119/75
[2016-10-12] MEDS: HALOPERIDOL 5 MG TABLET PO PRN (09:31)
[2016-10-12 16:24] VITALS: BP 109/67
[2016-10-12 17:30] VITALS: BP 115/70
[2016-10-12] MEDS: IBUPROFEN 400 MG TABLET PO PRN (17:31)
[2016-10-13 05:30] VITALS: BP 121/77
[2016-10-13] MEDS: QUEtiapine FUMARATE 200 MG TABLET PO SCH ×2 (08:15→16:24)
[2016-10-13] MEDS: CITALOPRAM HYDROBROMIDE 20 MG TABLET PO SCH (08:15)
[2016-10-13] MEDS: NYSTATIN 500,000 UNITS/5 ML SUSPENSION UDCUP PO SCH ×2 (08:16→16:24)
[2016-10-13] MEDS: NICOTINE 7 MG/24 HOUR PATCH TD SCH (08:16)
[2016-10-13] MEDS: LORazepam 2 MG TABLET PO PRN ×2 (08:28→17:59)
[2016-10-13] MEDS: MAGNESIUM HYDROXIDE SUSPENSION 30 ML UDCUP PO PRN (08:28)
[2016-10-13 08:33] VITALS: BP 112/79
[2016-10-13 16:00] VITALS: BP 110/60
[2016-10-13] MEDS: HALOPERIDOL 5 MG TABLET PO PRN (16:35)
[2016-10-14 06:14] VITALS: BP 112/71
[2016-10-14 08:20] VITALS: BP 110/60
[2016-10-14] MEDS: CITALOPRAM HYDROBROMIDE 20 MG TABLET PO SCH (08:32)
[2016-10-14] MEDS: NICOTINE 7 MG/24 HOUR PATCH TD SCH (08:32)
[2016-10-14] MEDS: NYSTATIN 500,000 UNITS/5 ML SUSPENSION UDCUP PO SCH ×2 (08:32→16:41)
[2016-10-14] MEDS: QUEtiapine FUMARATE 200 MG TABLET PO SCH ×2 (08:32→16:41)
[2016-10-14] MEDS: LORazepam 2 MG TABLET PO PRN ×2 (09:23→16:42)
[2016-10-14] MEDS: MAGNESIUM HYDROXIDE SUSPENSION 30 ML UDCUP PO PRN (10:01)
[2016-10-14 16:32] VITALS: BP 101/61
[2016-10-15 05:39] VITALS: BP 109/71
[2016-10-15 08:07] VITALS: BP 116/63
[2016-10-15] MEDS: CITALOPRAM HYDROBROMIDE 20 MG TABLET PO SCH (08:34)
[2016-10-15] MEDS: QUEtiapine FUMARATE 200 MG TABLET PO SCH (08:34)
[2016-10-15] MEDS: NYSTATIN 500,000 UNITS/5 ML SUSPENSION UDCUP PO SCH (08:34)
[2016-10-15] MEDS: NICOTINE 7 MG/24 HOUR PATCH TD SCH (08:34)
[2016-10-15] MEDS: MAGNESIUM HYDROXIDE SUSPENSION 30 ML UDCUP PO PRN (09:02)
[2016-10-15] MEDS: LORazepam 2 MG TABLET PO PRN (10:43)
[2016-10-15] MEDS ORDERED: QUET200T PO (14:03)
[2016-10-15] MEDS ORDERED: CITA20TA9 PO (14:03)
== END 2016-10-15 15:16 | disposition home or self-care (01) | DRG 750 ==
LOC: EMS 11:25 → EEVIPCON 11:25 → B3A 14:55
PROVIDERS: ADMIT Psychiatry & Neurology Psychiatry; ATTEND Psychiatry & Neurology Psychiatry
DX: F25.9 Schizoaffective disorder, unspecified (principal); R45.851 Suicidal ideations; I10 Essential (primary) hypertension; F17.210 Nicotine dependence, cigarettes, uncomplicated; F12.90 Cannabis use, unspecified, uncomplicated; F43.10 Post-traumatic stress disorder, unspecified; J45.909 Unspecified asthma, uncomplicated; K59.00 Constipation, unspecified; F99 Mental disorder, not otherwise specified; F31.9 Bipolar disorder, unspecified; Z71.6 Tobacco abuse counseling; F41.9 Anxiety disorder, unspecified; F32.9 Major depressive disorder, single episode, unspecified; Z98.890 Other specified postprocedural states; Z79.899 Other long term (current) drug therapy
CPT/HCPCS: 87081; 99285; 99406; G0480

== ENCOUNTER 2016-11-04 22:45 | Emergency (ER) | payer MEDICAID, OTHER ==
[~2016-11-04] VITALS: Ht 154.9 cm; Wt 94.0 kg
[2016-11-04 23:14] LABS: BASOPHILS % (AUTO) 0.4 % (0.0-2.0); EOSINOPHILS % (AUTO) 1.3 % (1.0-6.0); HEMATOCRIT 33.7 % (36-46); HEMOGLOBIN 10.8 g/dL (12.0-16.0); LYMPHOCYTES # (AUTO) 1.5 K/uL (1.0-4.8); LYMPHOCYTES % (AUTO) 18.1 % (22.0-44.0); MEAN CORPUSCULAR VOLUME 84 fL (80-100); MONOCYTES # (AUTO) 0.5 K/uL (0.1-1.0); MONOCYTES % (AUTO) 6.1 % (2.0-9.0); NEUTROPHILS # (AUTO) 6.4 K/uL (1.8-7.7); NEUTROPHILS % (AUTO) 74.1 % (40.0-70.0); PLATELET COUNT (AUTO) 291 K/uL (150-450); RED CELL DISTRIBUTION WIDTH 15.8 % (11.5-14.5); WHITE BLOOD COUNT (AUTO) 8.6 K/uL (4.5-11.0)
[2016-11-04 23:23] LABS: ANION GAP 12 mmol/L (8-16); CALCIUM, TOTAL 8.8 mg/dL (8.8-10.5); CARBON DIOXIDE 26 mmol/L (22-29); CHLORIDE 101 mmol/L (98-107); CREATININE 0.78 mg/dL (0.60-1.30); GLOMERULAR FILTR. RATE CALC > 60 mL/min (>60); POTASSIUM 3.6 mmol/L (3.5-5.1); SODIUM SERUM 139 mmol/L (136-145); UREA NITROGEN, BLOOD 15 mg/dL (7-18)
[2016-11-04 23:29] LABS: ALANINE AMINOTRANSFERASE 37 U/L (12-78); ALBUMIN 3.8 g/dL (3.4-5.0); ASPARTATE AMINOTRANSFERASE 17 U/L (15-37); BILIRUBIN,TOTAL 0.1 mg/dL (0.1-1.0); TOTAL PROTEIN, SERUM 7.2 g/dL (6.4-8.2)
[2016-11-05 02:43] VITALS: BP 121/77
== END 2016-11-05 03:27 | disposition home or self-care (01) ==
LOC: EMS 22:46
DX: F31.9 Bipolar disorder, unspecified (principal); F69 Unspecified disorder of adult personality and behavior; F41.9 Anxiety disorder, unspecified; F17.210 Nicotine dependence, cigarettes, uncomplicated; F12.90 Cannabis use, unspecified, uncomplicated
CPT/HCPCS: 36415; 80053; 80307; 85025; 99284; G0480

== ENCOUNTER 2016-11-05 13:21 | Emergency (ER) | payer OTHER ==
[~2016-11-05] VITALS: Ht 154.9 cm; Wt 90.0 kg
[2016-11-05 13:39] VITALS: BP 124/82
== END 2016-11-05 15:02 | disposition left against medical advice (07) ==
LOC: EMS 13:23
DX: M54.5 Low back pain (principal); F17.210 Nicotine dependence, cigarettes, uncomplicated; F12.90 Cannabis use, unspecified, uncomplicated; Z53.21 Procedure and treatment not carried out due to patient leaving prior to being seen by health care provider

== ENCOUNTER 2018-03-04 11:20 | Emergency (ER) | payer OTHER ==
[~2018-03-04] VITALS: Ht 154.9 cm; Wt 95.5 kg
[~2018-03-04 11:20] MED LIST changes: +CITA-106 PO; -CITA20TA9 PO
[2018-03-04] MEDS ORDERED: RISP.5 PO (11:41)
[2018-03-04] MEDS ORDERED: CEPH500 PO (11:41)
[2018-03-04 13:24] LABS: BASOPHILS % (AUTO) 0.8 % (0.0-2.0); EOSINOPHILS % (AUTO) 3.1 % (1.0-6.0); HEMATOCRIT 34.2 % (36-46); HEMOGLOBIN 11.3 g/dL (12.0-16.0); LYMPHOCYTES # (AUTO) 1.9 K/uL (1.0-4.8); LYMPHOCYTES % (AUTO) 26.6 % (22.0-44.0); MEAN CORPUSCULAR HEMOGLOBIN 27.7 pg (26.0-34.0); MEAN CORPUSCULAR HGB CONC 33.1 G/dL (31.0-37.0); MEAN CORPUSCULAR VOLUME 84 fL (80-100); MONOCYTES # (AUTO) 0.5 K/uL (0.1-1.0); MONOCYTES % (AUTO) 7.2 % (2.0-9.0); NEUTROPHILS # (AUTO) 4.6 K/uL (1.8-7.7); NEUTROPHILS % (AUTO) 62.3 % (40.0-70.0); PLATELET COUNT (AUTO) 332 K/uL (150-450); RED BLOOD CELL COUNT(AUTO) 4.09 MIL/uL (4.00-5.20)
[2018-03-04 13:36] LABS: ANION GAP 9 mmol/L (8-16); CALCIUM, TOTAL 8.7 mg/dL (8.8-10.5); CARBON DIOXIDE 25 mmol/L (22-29); CHLORIDE 104 mmol/L (98-107); CREATININE 0.76 mg/dL (0.60-1.30); GLOMERULAR FILTR. RATE CALC > 60 mL/min (>60); GLUCOSE,RANDOM 88 mg/dL (70-110); POTASSIUM 3.8 mmol/L (3.5-5.1); SODIUM SERUM 138 mmol/L (136-145); UREA NITROGEN, BLOOD 8 mg/dL (7-18)
[2018-03-04 13:40] LABS: APPEARANCE,URINE CLEAR (CLEAR); BILIRUBIN,URINE NEGATIVE (NEGATIVE); GLUCOSE, URINE (UA) NEGATIVE (NEGATIVE); KETONES,URINE NEGATIVE (NEGATIVE); LEUKOCYTE ESTERASE ,URINE NEGATIVE (NEGATIVE); NITRATE,URINE NEGATIVE (NEGATIVE); OCCULT BLOOD,URINE NEGATIVE (NEGATIVE); PROTEIN,URINE NEGATIVE (NEGATIVE); UROBILINOGEN,URINE 0.2 mg/dL (<=1.0)
[2018-03-04 13:45] LABS: AMPHET/METH SCREEN,URINE NEGATIVE (NEGATIVE); BARBITURATE SCREEN, URINE NEGATIVE (NEGATIVE); BENZODIAZEPINES SCREEN,URINE NEGATIVE (NEGATIVE); CANNABINOID SCREEN,URINE POSITIVE (NEGATIVE); COCAINE SCREEN,URINE POSITIVE (NEGATIVE); METHADONE SCREEN, URINE NEGATIVE (NEGATIVE); OPIATE SCREEN,URINE NEGATIVE (NEGATIVE); PHENCYCLIDINE SCREEN,URINE NEGATIVE (NEGATIVE)
[2018-03-04 13:49] LABS: ALANINE AMINOTRANSFERASE 40 U/L (12-78); ALBUMIN 3.3 g/dL (3.4-5.0); ALKALINE PHOSPHATASE 57 U/L (46-116); ASPARTATE AMINOTRANSFERASE 23 U/L (15-37); BILIRUBIN,TOTAL 0.2 mg/dL (0.1-1.0); HCG,QUANTITATIVE < 1 mIU/mL (0-6); TOTAL PROTEIN, SERUM 6.7 g/dL (6.4-8.2)
[2018-03-04 14:37] VITALS: BP 115/68
== END 2018-03-04 14:38 | disposition home or self-care (01) ==
LOC: EMS 11:21
DX: S91.302A Unspecified open wound, left foot, initial encounter (principal); F31.2 Bipolar disorder, current episode manic severe with psychotic features; F14.10 Cocaine abuse, uncomplicated; F12.10 Cannabis abuse, uncomplicated; F17.210 Nicotine dependence, cigarettes, uncomplicated; F41.9 Anxiety disorder, unspecified; F31.9 Bipolar disorder, unspecified; X58.XXXA Exposure to other specified factors, initial encounter; Y93.89 Activity, other specified; Y92.830 Public park as the place of occurrence of the external cause; Y99.8 Other external cause status
CPT/HCPCS: 36415; 80053; 80307; 81003; 84702; 85025; 99285; 99406; G0480

== ENCOUNTER 2018-03-04 14:59 | Inpatient (IN) | payer MEDICAID, OTHER ==
[~2018-03-04] VITALS: Ht 154.9 cm; Wt 95.8 kg
[~2018-03-04 14:59] MED LIST changes: +CEPH500 PO; +RISP.5 PO
[2018-03-04] MEDS: LORazepam 2 MG TABLET PO PRN (20:25)
[2018-03-04] MEDS: ZOLPIDEM TARTRATE 10 MG TABLET PO PRN (20:25)
[2018-03-04] MEDS: IBUPROFEN 400 MG TABLET PO PRN (20:25)
[2018-03-04 22:00] VITALS: BP 104/66
[2018-03-04] MEDS ORDERED: MAG HYDROX/AL HYDROX/SIMETH ES 30 ML SUSPENSION UDCUP PO PRN (22:00)
[2018-03-04] MEDS ORDERED: ALBUTEROL SULFATE HFA 90 MCG/PUFF 8 GM INHALER IH PRN (22:00)
[2018-03-04] MEDS ORDERED: ONDANSETRON HCL 4 MG TABLET PO PRN (22:00)
[2018-03-04] MEDS ORDERED: MAGNESIUM HYDROXIDE SUSPENSION 30 ML UDCUP PO PRN (22:00)
[2018-03-04] MEDS ORDERED: GuaiFENesin/D-METHORPHAN [SUGAR-FREE] 200-20MG/10 ML SYRUP UDCUP PO PRN (22:00)
[2018-03-04] MEDS ORDERED: LOPERAMIDE HCL 2 MG CAPSULE PO PRN (22:00)
[2018-03-05] MEDS ORDERED: -PHARMACY VACCINE NOTE- MISC ONE (00:15)
[2018-03-05 07:14] VITALS: BP 100/62
[2018-03-05 08:00] VITALS: BP 140/58
[2018-03-05 08:12] LABS: BASOPHILS % (AUTO) 0.4 % (0.0-2.0); HEMATOCRIT 34.6 % (36-46); HEMOGLOBIN 11.6 g/dL (12.0-16.0); LYMPHOCYTES # (AUTO) 1.8 K/uL (1.0-4.8); LYMPHOCYTES % (AUTO) 26.3 % (22.0-44.0); MEAN CORPUSCULAR HEMOGLOBIN 27.7 pg (26.0-34.0); MEAN CORPUSCULAR HGB CONC 33.6 G/dL (31.0-37.0); MEAN CORPUSCULAR VOLUME 82 fL (80-100); MONOCYTES # (AUTO) 0.4 K/uL (0.1-1.0); MONOCYTES % (AUTO) 5.7 % (2.0-9.0); NEUTROPHILS # (AUTO) 4.5 K/uL (1.8-7.7); NEUTROPHILS % (AUTO) 64.6 % (40.0-70.0); PLATELET COUNT (AUTO) 349 K/uL (150-450); RED BLOOD CELL COUNT(AUTO) 4.19 MIL/uL (4.00-5.20); RED CELL DISTRIBUTION WIDTH 15.5 % (11.5-14.5)
[2018-03-05 08:17] LABS: HEMOGLOBIN A1C 5.3 % (4.5-6.2)
[2018-03-05] MEDS: LORazepam 2 MG TABLET PO PRN ×2 (08:17→17:03)
[2018-03-05 08:36] LABS: ALANINE AMINOTRANSFERASE 38 U/L (12-78); ALBUMIN 3.1 g/dL (3.4-5.0); ALKALINE PHOSPHATASE 56 U/L (46-116); ANION GAP 4 mmol/L (8-16); ASPARTATE AMINOTRANSFERASE 16 U/L (15-37); BILIRUBIN,TOTAL 0.2 mg/dL (0.1-1.0); CALCIUM, TOTAL 8.7 mg/dL (8.8-10.5); CARBON DIOXIDE 28 mmol/L (22-29); CHLORIDE 106 mmol/L (98-107); CHOL/HDL RATIO 3.1 (3.9-5.7); CHOLESTEROL 147 mg/dL (131-200); CREATININE 0.84 mg/dL (0.60-1.30); GLOMERULAR FILTR. RATE CALC > 60 mL/min (>60); GLUCOSE,RANDOM 90 mg/dL (70-110); HDL CHOLESTEROL 48 mg/dL (40-60); LDL CHOL (CALC.) 73 mg/dL (0-130); SODIUM SERUM 138 mmol/L (136-145); THYROID STIMULATING HORMONE 1.47 uIU/mL (0.36-3.74); TOTAL PROTEIN, SERUM 6.2 g/dL (6.4-8.2); TRIGLYCERIDES 132 mg/dL (15-150); UREA NITROGEN, BLOOD 13 mg/dL (7-18)
[2018-03-05] MEDS: NICOTINE 14 MG/24 HOUR PATCH TD SCH (14:43)
[2018-03-05 17:01] VITALS: BP 128/82
[2018-03-05] MEDS: FERROUS SULFATE 325 MG EC TABLET PO SCH (17:02)
[2018-03-05] MEDS: OLANZapine 5 MG RAPDIS TABLET PO PRN (17:03)
[2018-03-05] MEDS: ACETAMINOPHEN 325 MG TABLET PO PRN (17:03)
[2018-03-05] MEDS: QUEtiapine FUMARATE 200 MG TABLET PO SCH (21:07)
[2018-03-05] MEDS: ZOLPIDEM TARTRATE 10 MG TABLET PO PRN (21:07)
[2018-03-06 06:12] VITALS: BP 121/70
[2018-03-06] MEDS: FERROUS SULFATE 325 MG EC TABLET PO SCH ×2 (06:39→16:15)
[2018-03-06] MEDS: OLANZapine 5 MG RAPDIS TABLET PO PRN ×2 (07:09→17:42)
[2018-03-06] MEDS: LORazepam 2 MG TABLET PO PRN ×2 (07:09→15:09)
[2018-03-06] MEDS: NICOTINE 14 MG/24 HOUR PATCH TD SCH (08:27)
[2018-03-06] MEDS: CITALOPRAM HYDROBROMIDE 20 MG TABLET PO SCH (08:27)
[2018-03-06 08:29] VITALS: BP 132/79
[2018-03-06] MEDS: COLLOIDAL OATMEAL PACKET TP SCH (16:19)
[2018-03-06 16:40] VITALS: BP 139/89
[2018-03-06 18:16] VITALS: BP 136/77
[2018-03-06] MEDS: IBUPROFEN 400 MG TABLET PO PRN (18:21)
[2018-03-06] MEDS: QUEtiapine FUMARATE 200 MG TABLET PO SCH (21:09)
[2018-03-07 04:50] VITALS: BP 126/81
[2018-03-07] MEDS: LORazepam 2 MG TABLET PO PRN ×4 (04:54→20:05)
[2018-03-07] MEDS: FERROUS SULFATE 325 MG EC TABLET PO SCH ×2 (06:27→16:44)
[2018-03-07 08:20] VITALS: BP 122/71
[2018-03-07] MEDS: NICOTINE 14 MG/24 HOUR PATCH TD SCH (08:37)
[2018-03-07] MEDS: CITALOPRAM HYDROBROMIDE 20 MG TABLET PO SCH (08:37)
[2018-03-07] MEDS: COLLOIDAL OATMEAL PACKET TP SCH ×3 (08:38→17:37)
[2018-03-07] MEDS: OLANZapine 5 MG RAPDIS TABLET PO PRN (08:39)
[2018-03-07] MEDS ORDERED: BACITRACIN 28.4 GM OINTMENT TP PRN (10:30)
[2018-03-07 16:02] VITALS: BP 112/75
[2018-03-07] MEDS: QUEtiapine FUMARATE 200 MG TABLET PO SCH (20:13)
[2018-03-08 04:14] VITALS: BP 114/76
[2018-03-08] MEDS: FERROUS SULFATE 325 MG EC TABLET PO SCH ×2 (06:27→16:26)
[2018-03-08] MEDS: NICOTINE 14 MG/24 HOUR PATCH TD SCH (08:14)
[2018-03-08] MEDS: CITALOPRAM HYDROBROMIDE 20 MG TABLET PO SCH (08:14)
[2018-03-08] MEDS: LORazepam 2 MG TABLET PO PRN ×2 (08:15→16:26)
[2018-03-08] MEDS: COLLOIDAL OATMEAL PACKET TP SCH ×3 (08:15→16:28)
[2018-03-08 08:32] VITALS: BP 128/72
[2018-03-08] MEDS: OLANZapine 5 MG RAPDIS TABLET PO PRN (09:17)
[2018-03-08] MEDS ORDERED: DiphenhydrAMINE HCL 50 MG/ML VIAL IM ONE (10:15)
[2018-03-08] MEDS ORDERED: LORazepam 2 MG/ML VIAL IM ONE (10:15)
[2018-03-08] MEDS ORDERED: HALOPERIDOL LACTATE 5 MG/ML VIAL IM ONE (10:15)
[2018-03-08] MEDS: DOCUSATE SODIUM 100 MG CAPSULE PO PRN (13:59)
[2018-03-08 16:00] VITALS: BP 123/71
[2018-03-08] MEDS: ACETAMINOPHEN 325 MG TABLET PO PRN (17:50)
[2018-03-08 17:52] VITALS: BP 123/71
[2018-03-08] MEDS: QUEtiapine FUMARATE 200 MG TABLET PO SCH (20:16)
[2018-03-08] MEDS: ZOLPIDEM TARTRATE 10 MG TABLET PO PRN (20:16)
[2018-03-09 01:42] VITALS: BP 130/76
[2018-03-09] MEDS: FERROUS SULFATE 325 MG EC TABLET PO SCH ×2 (06:32→16:08)
[2018-03-09] MEDS: CITALOPRAM HYDROBROMIDE 20 MG TABLET PO SCH (08:12)
[2018-03-09] MEDS: COLLOIDAL OATMEAL PACKET TP SCH ×3 (08:12→16:10)
[2018-03-09] MEDS: LORazepam 2 MG TABLET PO PRN ×2 (08:12→14:50)
[2018-03-09] MEDS: NICOTINE 14 MG/24 HOUR PATCH TD SCH (08:12)
[2018-03-09] MEDS: OLANZapine 5 MG RAPDIS TABLET PO PRN ×2 (08:13→14:50)
[2018-03-09 09:12] VITALS: BP 137/87
[2018-03-09 16:06] VITALS: BP 130/70
[2018-03-09] MEDS ORDERED: QUEtiapine FUMARATE 200 MG TABLET PO SCH (17:00)
[2018-03-10] MEDS: DOCUSATE SODIUM 100 MG CAPSULE PO PRN (05:15)
[2018-03-10 05:49] VITALS: BP 125/72
[2018-03-10] MEDS: LORazepam 2 MG TABLET PO PRN ×3 (05:49→17:49)
[2018-03-10] MEDS: OLANZapine 5 MG RAPDIS TABLET PO PRN (05:49)
[2018-03-10] MEDS: FERROUS SULFATE 325 MG EC TABLET PO SCH ×2 (06:35→16:31)
[2018-03-10] MEDS: QUEtiapine FUMARATE 200 MG TABLET PO SCH ×2 (08:05→16:31)
[2018-03-10] MEDS: CITALOPRAM HYDROBROMIDE 20 MG TABLET PO SCH (08:05)
[2018-03-10] MEDS: NICOTINE 14 MG/24 HOUR PATCH TD SCH (08:05)
[2018-03-10] MEDS: COLLOIDAL OATMEAL PACKET TP SCH ×3 (08:07→16:31)
[2018-03-10 08:35] VITALS: BP 115/79
[2018-03-10] MEDS: FLUoxetine HCL 20 MG CAPSULE PO SCH (09:36)
[2018-03-10 16:00] VITALS: BP 121/65
[2018-03-10] MEDS: ZOLPIDEM TARTRATE 10 MG TABLET PO PRN (21:42)
[2018-03-11 06:04] VITALS: BP 104/76
[2018-03-11] MEDS: FERROUS SULFATE 325 MG EC TABLET PO SCH ×2 (06:04→16:18)
[2018-03-11] MEDS: LORazepam 2 MG TABLET PO PRN (06:34)
[2018-03-11 08:01] VITALS: BP 108/66
[2018-03-11] MEDS: FLUoxetine HCL 20 MG CAPSULE PO SCH (08:11)
[2018-03-11] MEDS: CITALOPRAM HYDROBROMIDE 20 MG TABLET PO SCH (08:11)
[2018-03-11] MEDS: QUEtiapine FUMARATE 200 MG TABLET PO SCH ×2 (08:11→16:18)
[2018-03-11] MEDS: NICOTINE 14 MG/24 HOUR PATCH TD SCH (08:12)
[2018-03-11] MEDS: COLLOIDAL OATMEAL PACKET TP SCH ×2 (08:14→12:18)
[2018-03-11] MEDS ORDERED: QUET200T PO (12:43)
[2018-03-11] MEDS ORDERED: CITA-106 PO (12:43)
[2018-03-11] MEDS ORDERED: FLUO-191 PO (12:43)
[2018-03-11] MEDS ORDERED: FERR-89 PO (12:43)
[2018-03-11 16:12] VITALS: BP 117/68
== END 2018-03-11 16:20 | disposition home or self-care (01) | DRG 753 ==
LOC: EMS 15:01 → B3A 19:30
PROVIDERS: ADMIT Psychiatry & Neurology Psychiatry; ATTEND Psychiatry & Neurology Psychiatry
DX: F31.63 Bipolar disorder, current episode mixed, severe, without psychotic features (principal); R45.851 Suicidal ideations; D64.9 Anemia, unspecified; F12.10 Cannabis abuse, uncomplicated; F14.10 Cocaine abuse, uncomplicated; F17.210 Nicotine dependence, cigarettes, uncomplicated; F41.9 Anxiety disorder, unspecified; F43.10 Post-traumatic stress disorder, unspecified; I10 Essential (primary) hypertension; J45.909 Unspecified asthma, uncomplicated; Z59.0 Homelessness; Z91.5 Personal history of self-harm; Z79.899 Other long term (current) drug therapy; Z71.41 Alcohol abuse counseling and surveillance of alcoholic; Z71.51 Drug abuse counseling and surveillance of drug abuser; Z71.6 Tobacco abuse counseling; Z72.89 Other problems related to lifestyle
CPT/HCPCS: 83036; 84443; 99285; 99406; J1200; J1630; J2060

== ENCOUNTER 2019-12-29 00:19 | Inpatient (IN) | payer MEDICAID ==
[~2019-12-29] VITALS: Ht 154.9 cm; Wt 110.8 kg
[~2019-12-29 00:19] MED LIST changes: -CEPH500 PO; -CITA-106 PO; +CITA-144 PO; +FERR-89 PO; +GABA-1181 PO; +OLAN7.5T2 PO; -QUET200T PO; -RISP.5 PO
[2019-12-29 03:08] VITALS: BP 136/89
[2019-12-29] MEDS ORDERED: PNEUMOCOCCAL VACCINE POLYVALENT 0.5 ML VIAL [PPSV23] IM ONE (03:30)
[2019-12-29] MEDS ORDERED: ZIPR20CA2 PO (05:11)
[2019-12-29] MEDS ORDERED: FLUC100T PO (05:11)
[2019-12-29] MEDS ORDERED: FERR-89 PO (05:11)
[2019-12-29] MEDS ORDERED: POTA20TA83 PO (05:11)
[2019-12-29] MEDS ORDERED: CEFX2I IM (05:11)
[2019-12-29] MEDS ORDERED: CIPR-278 PO (05:11)
[2019-12-29] MEDS ORDERED: ACETAMINOPHEN 325 MG TABLET PO PRN (06:00)
[2019-12-29] MEDS ORDERED: PETROLATUM,WHITE 28 GM JELLY TP PRN (06:00)
[2019-12-29] MEDS ORDERED: MAG HYDROX/AL HYDROX/SIMETH ES 30 ML SUSPENSION UDCUP PO PRN (06:00)
[2019-12-29] MEDS ORDERED: ONDANSETRON HCL 4 MG TABLET PO PRN (06:00)
[2019-12-29] MEDS ORDERED: CloNIDine HCL 0.1 MG TABLET PO PRN (06:00)
[2019-12-29] MEDS ORDERED: POTASSIUM CHLORIDE 20 MEQ ER TABLET PO SCH (06:00)
[2019-12-29] MEDS ORDERED: LOPERAMIDE HCL 2 MG CAPSULE PO PRN (06:00)
[2019-12-29] MEDS ORDERED: DOCUSATE SODIUM 100 MG CAPSULE PO PRN (06:00)
[2019-12-29] MEDS ORDERED: GuaiFENesin/D-METHORPHAN [SUGAR-FREE] 200-20MG/10 ML SYRUP UDCUP PO PRN (06:00)
[2019-12-29] MEDS: FERROUS SULFATE 325 MG EC TABLET PO SCH ×2 (07:25→16:38)
[2019-12-29 08:12] VITALS: BP 107/62
[2019-12-29] MEDS: CIPROFLOXACIN HCL 500 MG TABLET PO SCH ×2 (08:40→16:38)
[2019-12-29] MEDS: LORazepam 2 MG TABLET PO PRN (12:11)
[2019-12-29] MEDS: IBUPROFEN 400 MG TABLET PO PRN (13:02)
[2019-12-29 16:32] VITALS: BP 138/91
[2019-12-29] MEDS: GABAPENTIN 300 MG CAPSULE PO SCH (16:38)
[2019-12-29] MEDS: ZIPRASIDONE HCL 20 MG CAPSULE PO SCH (16:38)
[2019-12-30 05:57] VITALS: BP 121/79
[2019-12-30] MEDS: FERROUS SULFATE 325 MG EC TABLET PO SCH ×2 (06:56→16:40)
[2019-12-30] MEDS: ZIPRASIDONE HCL 20 MG CAPSULE PO SCH ×2 (06:56→16:39)
[2019-12-30 07:53] LABS: BASOPHILS % (AUTO) 0.6 % (0.0-2.0); EOSINOPHILS % (AUTO) 4.1 % (1.0-6.0); HEMATOCRIT 34.8 % (36-46); HEMOGLOBIN 11.1 g/dL (12.0-16.0); LYMPHOCYTES # (AUTO) 1.9 K/uL (1.0-4.8); LYMPHOCYTES % (AUTO) 27.6 % (22.0-44.0); MEAN CORPUSCULAR HEMOGLOBIN 26.4 pg (26.0-34.0); MEAN CORPUSCULAR HGB CONC 31.8 G/dL (31.0-37.0); MEAN CORPUSCULAR VOLUME 83 fL (80-100); MONOCYTES # (AUTO) 0.4 K/uL (0.1-1.0); MONOCYTES % (AUTO) 6.5 % (2.0-9.0); NEUTROPHILS # (AUTO) 4.2 K/uL (1.8-7.7); NEUTROPHILS % (AUTO) 61.2 % (40.0-70.0); PLATELET COUNT (AUTO) 313 K/uL (150-450); RED BLOOD CELL COUNT(AUTO) 4.19 MIL/uL (4.00-5.20); RED CELL DISTRIBUTION WIDTH 16.3 % (11.5-14.5)
[2019-12-30] MEDS: GABAPENTIN 300 MG CAPSULE PO SCH ×2 (08:15→16:40)
[2019-12-30] MEDS: CITALOPRAM HYDROBROMIDE 20 MG TABLET PO SCH (08:15)
[2019-12-30] MEDS: CIPROFLOXACIN HCL 500 MG TABLET PO SCH ×2 (08:15→16:40)
[2019-12-30] MEDS: NICOTINE POLACRILEX 2 MG LOZENGE PO PRN ×2 (08:17→18:01)
[2019-12-30 08:23] LABS: HEMOGLOBIN A1C 4.9 % (3.8-5.6)
[2019-12-30 08:32] VITALS: BP 136/99
[2019-12-30 08:38] LABS: ALANINE AMINOTRANSFERASE 33 U/L (12-78); ALBUMIN 2.9 g/dL (3.4-5.0); ALKALINE PHOSPHATASE 76 U/L (46-116); ANION GAP 4 mmol/L (8-16); ASPARTATE AMINOTRANSFERASE 19 U/L (15-37); BILIRUBIN,TOTAL 0.1 mg/dL (0.1-1.0); CALCIUM, TOTAL 8.6 mg/dL (8.8-10.5); CARBON DIOXIDE 29 mmol/L (22-29); CHLORIDE 108 mmol/L (98-107); CHOL/HDL RATIO 4.2 (3.9-5.7); CHOLESTEROL 160 mg/dL (131-200); CREATININE 0.75 mg/dL (0.60-1.30); FREE T4 (FREE THYROXINE) 1.05 ng/dL (0.76-1.46); GLOMERULAR FILTR. RATE CALC > 60 mL/min (>60); GLUCOSE,RANDOM 86 mg/dL (70-110); HDL CHOLESTEROL 38 mg/dL (40-60); LDL CHOL (CALC.) 97 mg/dL (0-130); POTASSIUM 4.2 mmol/L (3.5-5.1); SODIUM SERUM 141 mmol/L (136-145); THYROID STIMULATING HORMONE 1.24 uIU/mL (0.36-3.74); TOTAL PROTEIN, SERUM 6.1 g/dL (6.4-8.2); TRIGLYCERIDES 125 mg/dL (15-150); UREA NITROGEN, BLOOD 10 mg/dL (7-18)
[2019-12-30] MEDS: LORazepam 2 MG TABLET PO PRN ×2 (09:59→17:07)
[2019-12-30 16:27] VITALS: BP 123/85
[2019-12-30] MEDS: ZOLPIDEM TARTRATE 10 MG TABLET PO PRN (20:25)
[2019-12-31] VITALS: BP 123/79
[2019-12-31] MEDS: FERROUS SULFATE 325 MG EC TABLET PO SCH ×2 (07:04→16:25)
[2019-12-31] MEDS: ZIPRASIDONE HCL 20 MG CAPSULE PO SCH ×2 (07:04→16:25)
[2019-12-31 08:01] LABS: APPEARANCE,URINE CLEAR (CLEAR); BILIRUBIN,URINE NEGATIVE (NEGATIVE); GLUCOSE, URINE (UA) NEGATIVE (NEGATIVE); KETONES,URINE NEGATIVE (NEGATIVE); LEUKOCYTE ESTERASE ,URINE NEGATIVE (NEGATIVE); NITRATE,URINE NEGATIVE (NEGATIVE); OCCULT BLOOD,URINE NEGATIVE (NEGATIVE); PROTEIN,URINE NEGATIVE (NEGATIVE); UROBILINOGEN,URINE 0.2 mg/dL (<=1.0)
[2019-12-31 08:14] LABS: AMPHET/METH SCREEN,URINE NEGATIVE (NEGATIVE); BARBITURATE SCREEN, URINE NEGATIVE (NEGATIVE); BENZODIAZEPINES SCREEN,URINE NEGATIVE (NEGATIVE); CANNABINOID SCREEN,URINE NEGATIVE (NEGATIVE); COCAINE SCREEN,URINE NEGATIVE (NEGATIVE); METHADONE SCREEN, URINE NEGATIVE (NEGATIVE); OPIATE SCREEN,URINE NEGATIVE (NEGATIVE)
[2019-12-31 08:15] LABS: PHENCYCLIDINE SCREEN,URINE NEGATIVE (NEGATIVE)
[2019-12-31 09:06] VITALS: BP 111/78
[2019-12-31] MEDS: CIPROFLOXACIN HCL 500 MG TABLET PO SCH ×2 (09:26→16:25)
[2019-12-31] MEDS: CITALOPRAM HYDROBROMIDE 20 MG TABLET PO SCH (09:26)
[2019-12-31] MEDS: GABAPENTIN 300 MG CAPSULE PO SCH ×2 (09:26→16:25)
[2019-12-31] MEDS: NICOTINE POLACRILEX 2 MG LOZENGE PO PRN (12:26)
[2019-12-31] MEDS: LORazepam 2 MG TABLET PO PRN ×2 (12:55→17:15)
[2019-12-31 16:30] VITALS: BP 132/77
[2020-01-01 06:39] VITALS: BP 104/75
[2020-01-01] MEDS: ZIPRASIDONE HCL 20 MG CAPSULE PO SCH ×2 (06:45→16:12)
[2020-01-01] MEDS: FERROUS SULFATE 325 MG EC TABLET PO SCH ×2 (06:45→16:12)
[2020-01-01 08:20] VITALS: BP 118/69
[2020-01-01] MEDS: GABAPENTIN 300 MG CAPSULE PO SCH ×2 (08:46→16:12)
[2020-01-01] MEDS: CIPROFLOXACIN HCL 500 MG TABLET PO SCH ×2 (08:46→16:12)
[2020-01-01] MEDS: LORazepam 2 MG TABLET PO PRN ×3 (08:46→21:16)
[2020-01-01] MEDS: CITALOPRAM HYDROBROMIDE 20 MG TABLET PO SCH (08:46)
[2020-01-01] MEDS: NICOTINE POLACRILEX 2 MG LOZENGE PO PRN ×2 (09:51→18:35)
[2020-01-01 16:08] VITALS: BP 132/75
[2020-01-01] MEDS: IBUPROFEN 400 MG TABLET PO PRN (18:52)
[2020-01-02 01:43] VITALS: BP 110/75
[2020-01-02] MEDS: FERROUS SULFATE 325 MG EC TABLET PO SCH ×2 (06:37→17:12)
[2020-01-02] MEDS: ZIPRASIDONE HCL 20 MG CAPSULE PO SCH (06:38)
[2020-01-02 08:10] VITALS: BP 103/59
[2020-01-02] MEDS: GABAPENTIN 300 MG CAPSULE PO SCH ×2 (08:56→17:12)
[2020-01-02] MEDS: MAGNESIUM HYDROXIDE SUSPENSION 30 ML UDCUP PO PRN (08:56)
[2020-01-02] MEDS: CITALOPRAM HYDROBROMIDE 20 MG TABLET PO SCH (08:56)
[2020-01-02] MEDS: CIPROFLOXACIN HCL 500 MG TABLET PO SCH ×2 (08:56→17:12)
[2020-01-02] MEDS: NICOTINE POLACRILEX 2 MG LOZENGE PO PRN ×2 (09:49→18:13)
[2020-01-02 12:10] VITALS: BP 114/78
[2020-01-02] MEDS: QUEtiapine FUMARATE 100 MG TABLET PO PRN (12:13)
[2020-01-02] MEDS: LORazepam 2 MG TABLET PO PRN (12:13)
[2020-01-02 16:23] VITALS: BP 100/75
[2020-01-02] MEDS: ZIPRASIDONE HCL 40 MG CAPSULE PO SCH (17:12)
[2020-01-03 01:53] VITALS: BP 102/74
[2020-01-03] MEDS: FERROUS SULFATE 325 MG EC TABLET PO SCH ×2 (06:35→16:14)
[2020-01-03] MEDS: ZIPRASIDONE HCL 40 MG CAPSULE PO SCH ×2 (06:35→16:13)
[2020-01-03] MEDS: GABAPENTIN 300 MG CAPSULE PO SCH ×2 (08:42→16:14)
[2020-01-03] MEDS: ValACYclovir HCL 500 MG TABLET PO SCH ×2 (08:42→20:14)
[2020-01-03] MEDS: CIPROFLOXACIN HCL 500 MG TABLET PO SCH ×2 (08:44→16:14)
[2020-01-03] MEDS: LORazepam 2 MG TABLET PO PRN ×2 (08:44→16:59)
[2020-01-03] MEDS: CITALOPRAM HYDROBROMIDE 20 MG TABLET PO SCH (08:44)
[2020-01-03] MEDS: NICOTINE POLACRILEX 2 MG LOZENGE PO PRN ×2 (08:51→16:15)
[2020-01-03] MEDS ORDERED: PALIPERIDONE PALMITATE 156 MG/ML SYRINGE IM SCH (09:00)
[2020-01-03 16:17] VITALS: BP 122/77
[2020-01-04 01:25] VITALS: BP 110/72
[2020-01-04] MEDS: FERROUS SULFATE 325 MG EC TABLET PO SCH ×2 (05:56→16:24)
[2020-01-04] MEDS: ZIPRASIDONE HCL 40 MG CAPSULE PO SCH ×2 (05:56→16:24)
[2020-01-04] MEDS: GABAPENTIN 300 MG CAPSULE PO SCH ×2 (08:14→16:24)
[2020-01-04] MEDS: CIPROFLOXACIN HCL 500 MG TABLET PO SCH ×2 (08:14→16:24)
[2020-01-04] MEDS: ValACYclovir HCL 500 MG TABLET PO SCH ×2 (08:14→20:04)
[2020-01-04] MEDS: CITALOPRAM HYDROBROMIDE 20 MG TABLET PO SCH (08:14)
[2020-01-04 08:15] VITALS: BP 110/62
[2020-01-04] MEDS: NICOTINE POLACRILEX 2 MG LOZENGE PO PRN (10:06)
[2020-01-04] MEDS: LORazepam 2 MG TABLET PO PRN (12:28)
[2020-01-04] MEDS: QUEtiapine FUMARATE 100 MG TABLET PO PRN (12:28)
[2020-01-04 16:16] VITALS: BP 108/61
[2020-01-05 03:23] VITALS: BP 106/65
[2020-01-05] MEDS: ZIPRASIDONE HCL 40 MG CAPSULE PO SCH ×2 (06:17→16:01)
[2020-01-05] MEDS: FERROUS SULFATE 325 MG EC TABLET PO SCH ×2 (06:17→16:01)
[2020-01-05] MEDS: LORazepam 2 MG TABLET PO PRN ×2 (08:18→16:35)
[2020-01-05] MEDS: CIPROFLOXACIN HCL 500 MG TABLET PO SCH ×2 (08:18→16:01)
[2020-01-05] MEDS: GABAPENTIN 300 MG CAPSULE PO SCH ×2 (08:18→16:01)
[2020-01-05] MEDS: ValACYclovir HCL 500 MG TABLET PO SCH ×2 (08:18→20:05)
[2020-01-05] MEDS: CITALOPRAM HYDROBROMIDE 20 MG TABLET PO SCH (08:18)
[2020-01-05 08:39] VITALS: BP 112/66
[2020-01-05] MEDS: NICOTINE POLACRILEX 2 MG LOZENGE PO PRN ×2 (12:10→20:06)
[2020-01-05] MEDS: QUEtiapine FUMARATE 100 MG TABLET PO PRN (13:53)
[2020-01-05 16:33] VITALS: BP 121/74
[2020-01-06 01:18] VITALS: BP 115/66
[2020-01-06] MEDS: FERROUS SULFATE 325 MG EC TABLET PO SCH ×2 (06:12→16:16)
[2020-01-06] MEDS: ZIPRASIDONE HCL 40 MG CAPSULE PO SCH ×2 (06:12→16:16)
[2020-01-06] MEDS: QUEtiapine FUMARATE 100 MG TABLET PO PRN (08:32)
[2020-01-06] MEDS: CIPROFLOXACIN HCL 500 MG TABLET PO SCH ×2 (08:32→16:25)
[2020-01-06] MEDS: GABAPENTIN 300 MG CAPSULE PO SCH ×2 (08:32→16:16)
[2020-01-06] MEDS: CITALOPRAM HYDROBROMIDE 20 MG TABLET PO SCH (08:33)
[2020-01-06] MEDS: LORazepam 2 MG TABLET PO PRN ×3 (08:33→21:15)
[2020-01-06] MEDS: NICOTINE POLACRILEX 2 MG LOZENGE PO PRN ×2 (09:22→17:21)
[2020-01-06 16:07] VITALS: BP 121/68
[2020-01-07 06:30] VITALS: BP 89/61
[2020-01-07] MEDS: FERROUS SULFATE 325 MG EC TABLET PO SCH ×2 (06:37→16:24)
[2020-01-07] MEDS: ZIPRASIDONE HCL 40 MG CAPSULE PO SCH ×2 (06:37→16:24)
[2020-01-07 08:01] VITALS: BP 120/62
[2020-01-07] MEDS: CITALOPRAM HYDROBROMIDE 20 MG TABLET PO SCH (08:03)
[2020-01-07] MEDS: CIPROFLOXACIN HCL 500 MG TABLET PO SCH ×2 (08:03→16:24)
[2020-01-07] MEDS: GABAPENTIN 300 MG CAPSULE PO SCH ×2 (08:03→16:24)
[2020-01-07] MEDS: LORazepam 2 MG TABLET PO PRN ×2 (08:04→17:50)
[2020-01-07] MEDS: NICOTINE POLACRILEX 2 MG LOZENGE PO PRN (10:49)
[2020-01-07] MEDS: MAGNESIUM HYDROXIDE SUSPENSION 30 ML UDCUP PO PRN (13:58)
[2020-01-07] MEDS ORDERED: NICOTINE POLACRILEX 2 MG LOZENGE PO PRN (15:00)
[2020-01-07 16:30] VITALS: BP 118/76
[2020-01-07] MEDS: ZOLPIDEM TARTRATE 10 MG TABLET PO PRN (20:48)
[2020-01-08 05:39] VITALS: BP 103/60
[2020-01-08] MEDS: FERROUS SULFATE 325 MG EC TABLET PO SCH ×2 (06:24→16:15)
[2020-01-08] MEDS: ZIPRASIDONE HCL 40 MG CAPSULE PO SCH ×2 (06:24→16:57)
[2020-01-08] MEDS: NICOTINE POLACRILEX 2 MG LOZENGE PO PRN ×2 (08:00→12:28)
[2020-01-08] MEDS: CITALOPRAM HYDROBROMIDE 20 MG TABLET PO SCH (08:01)
[2020-01-08] MEDS: GABAPENTIN 300 MG CAPSULE PO SCH ×2 (08:01→16:57)
[2020-01-08 08:04] VITALS: BP 133/84
[2020-01-08 16:06] VITALS: BP 139/89
[2020-01-08] MEDS: IBUPROFEN 400 MG TABLET PO PRN (18:32)
[2020-01-08] MEDS: QUEtiapine FUMARATE 100 MG TABLET PO PRN (18:55)
[2020-01-08] MEDS: ALBUTEROL SULFATE HFA 90 MCG/PUFF 8 GM INHALER IH PRN (20:45)
[2020-01-09 04:36] VITALS: BP 120/70
[2020-01-09] MEDS: FERROUS SULFATE 325 MG EC TABLET PO SCH ×2 (06:20→16:45)
[2020-01-09] MEDS: ZIPRASIDONE HCL 40 MG CAPSULE PO SCH ×2 (06:20→16:45)
[2020-01-09 08:08] VITALS: BP 102/59
[2020-01-09] MEDS: CITALOPRAM HYDROBROMIDE 20 MG TABLET PO SCH (08:36)
[2020-01-09] MEDS: GABAPENTIN 300 MG CAPSULE PO SCH ×2 (08:36→16:48)
[2020-01-09] MEDS: NICOTINE POLACRILEX 2 MG LOZENGE PO PRN ×2 (12:00→18:24)
[2020-01-09] MEDS: ALBUTEROL SULFATE HFA 90 MCG/PUFF 8 GM INHALER IH PRN ×2 (12:00→18:11)
[2020-01-09 16:22] VITALS: BP 113/73
[2020-01-09] MEDS: MAGNESIUM HYDROXIDE SUSPENSION 30 ML UDCUP PO PRN (19:23)
[2020-01-09] MEDS: IBUPROFEN 400 MG TABLET PO PRN (20:28)
[2020-01-10 01:01] VITALS: BP 106/69
[2020-01-10] MEDS: FERROUS SULFATE 325 MG EC TABLET PO SCH ×2 (07:20→16:28)
[2020-01-10] MEDS: ZIPRASIDONE HCL 40 MG CAPSULE PO SCH ×2 (07:20→16:28)
[2020-01-10] MEDS: NICOTINE POLACRILEX 2 MG LOZENGE PO PRN ×2 (07:20→20:48)
[2020-01-10] MEDS: GABAPENTIN 300 MG CAPSULE PO SCH ×2 (08:08→16:28)
[2020-01-10] MEDS: CITALOPRAM HYDROBROMIDE 20 MG TABLET PO SCH (08:08)
[2020-01-10 08:10] VITALS: BP 121/70
[2020-01-10] MEDS: IBUPROFEN 400 MG TABLET PO PRN (16:28)
[2020-01-10 16:57] VITALS: BP 134/76
[2020-01-10] MEDS: QUEtiapine FUMARATE 100 MG TABLET PO PRN (17:54)
[2020-01-10] MEDS: ALBUTEROL SULFATE HFA 90 MCG/PUFF 8 GM INHALER IH PRN (17:54)
[2020-01-10] MEDS ORDERED: ZOLPIDEM TARTRATE 10 MG TABLET PO PRN (22:15)
[2020-01-11 03:56] VITALS: BP 127/78
[2020-01-11] MEDS: ZIPRASIDONE HCL 40 MG CAPSULE PO SCH ×2 (06:46→16:01)
[2020-01-11] MEDS: FERROUS SULFATE 325 MG EC TABLET PO SCH ×2 (06:46→16:01)
[2020-01-11] MEDS: CITALOPRAM HYDROBROMIDE 20 MG TABLET PO SCH (08:09)
[2020-01-11] MEDS: GABAPENTIN 300 MG CAPSULE PO SCH ×2 (08:09→16:01)
[2020-01-11] MEDS: NICOTINE POLACRILEX 2 MG LOZENGE PO PRN ×2 (08:17→17:35)
[2020-01-11 08:19] VITALS: BP 105/73
[2020-01-11] MEDS ORDERED: ZIPR40CA2 PO (11:11)
[2020-01-11] MEDS ORDERED: FERR-89 PO (11:12)
[2020-01-11] MEDS ORDERED: PALI156D IM (11:12)
[2020-01-11 16:25] VITALS: BP 130/72
== END 2020-01-11 17:45 | disposition home or self-care (01) | DRG 885 ==
LOC: B2S 02:15 → B3A 12-31 12:35
PROVIDERS: ADMIT Psychiatry & Neurology Psychiatry; ATTEND Psychiatry & Neurology Psychiatry
PROC: 3E0234Z Introduction of Serum, Toxoid and Vaccine into Muscle, Percutaneous Approach (ICD-10-PCS; principal; 2019-12-29)
DX: F31.81 Bipolar II disorder (principal); N39.0 Urinary tract infection, site not specified; I10 Essential (primary) hypertension; J45.909 Unspecified asthma, uncomplicated; F94.0 Selective mutism; F17.200 Nicotine dependence, unspecified, uncomplicated; F12.90 Cannabis use, unspecified, uncomplicated; F19.10 Other psychoactive substance abuse, uncomplicated; Z23 Encounter for immunization
CPT/HCPCS: 80307; 83036; 84439; 84443; 87081; 90732; J3535

== ENCOUNTER 2020-01-23 21:24 | Emergency (ER) | payer MEDICAID, OTHER ==
[~2020-01-23] VITALS: Ht 154.9 cm; Wt 111.4 kg
[~2020-01-23 21:24] MED LIST changes: -OLAN7.5T2 PO; +PALI156D IM; +ZIPR40CA2 PO
[2020-01-23 22:24] LABS: BASOPHILS % (AUTO) 0.1 % (0.0-2.0); HEMATOCRIT 34.3 % (36-46); LYMPHOCYTES # (AUTO) 1.6 K/uL (1.0-4.8); LYMPHOCYTES % (AUTO) 16.3 % (22.0-44.0); MEAN CORPUSCULAR HGB CONC 32.1 G/dL (31.0-37.0); MEAN CORPUSCULAR VOLUME 81 fL (80-100); MONOCYTES # (AUTO) 0.6 K/uL (0.1-1.0); MONOCYTES % (AUTO) 6.3 % (2.0-9.0); NEUTROPHILS # (AUTO) 7.3 K/uL (1.8-7.7); NEUTROPHILS % (AUTO) 76.3 % (40.0-70.0); PLATELET COUNT (AUTO) 346 K/uL (150-450); RED BLOOD CELL COUNT(AUTO) 4.24 MIL/uL (4.00-5.20); RED CELL DISTRIBUTION WIDTH 16.1 % (11.5-14.5)
[2020-01-23 22:43] LABS: ANION GAP 8 mmol/L (8-16); CALCIUM, TOTAL 8.9 mg/dL (8.8-10.5); CARBON DIOXIDE 27 mmol/L (22-29); CHLORIDE 101 mmol/L (98-107); CREATININE 0.87 mg/dL (0.60-1.30); GLOMERULAR FILTR. RATE CALC > 60 mL/min (>60); GLUCOSE,RANDOM 148 mg/dL (70-110); POTASSIUM 3.5 mmol/L (3.5-5.1); SODIUM SERUM 136 mmol/L (136-145); UREA NITROGEN, BLOOD 11 mg/dL (7-18)
[2020-01-23 22:54] LABS: ALANINE AMINOTRANSFERASE 40 U/L (12-78); ALBUMIN 3.7 g/dL (3.4-5.0); ALKALINE PHOSPHATASE 87 U/L (46-116); ASPARTATE AMINOTRANSFERASE 34 U/L (15-37); BILIRUBIN,TOTAL 0.1 mg/dL (0.1-1.0); HCG,QUANTITATIVE < 1 mIU/mL (0-6); TOTAL PROTEIN, SERUM 7.6 g/dL (6.4-8.2)
[2020-01-24] MEDS ORDERED: LORazepam 1 MG TABLET PO ONE
[2020-01-24 00:44] LABS: AMPHET/METH SCREEN,URINE NEGATIVE (NEGATIVE); BARBITURATE SCREEN, URINE NEGATIVE (NEGATIVE); BENZODIAZEPINES SCREEN,URINE NEGATIVE (NEGATIVE); CANNABINOID SCREEN,URINE POSITIVE (NEGATIVE); COCAINE SCREEN,URINE NEGATIVE (NEGATIVE); METHADONE SCREEN, URINE NEGATIVE (NEGATIVE); OPIATE SCREEN,URINE NEGATIVE (NEGATIVE)
[2020-01-24 00:45] LABS: PHENCYCLIDINE SCREEN,URINE NEGATIVE (NEGATIVE)
[2020-01-24 01:25] VITALS: BP 140/72
== END 2020-01-24 01:36 | disposition home or self-care (01) ==
LOC: EMS 21:24
DX: F41.9 Anxiety disorder, unspecified (principal); F31.9 Bipolar disorder, unspecified; F17.210 Nicotine dependence, cigarettes, uncomplicated; F12.90 Cannabis use, unspecified, uncomplicated
CPT/HCPCS: 36415; 80053; 80307; 84702; 85025; 99284; G0480

== ENCOUNTER 2020-01-24 16:53 | Emergency (ER) | payer OTHER ==
[~2020-01-24] VITALS: Ht 154.9 cm; Wt 109.1 kg
[2020-01-24 17:56] LABS: BASOPHILS % (AUTO) 0.4 % (0.0-2.0); EOSINOPHILS % (AUTO) 0.7 % (1.0-6.0); HEMATOCRIT 33.4 % (36-46); HEMOGLOBIN 11.1 g/dL (12.0-16.0); LYMPHOCYTES # (AUTO) 1.4 K/uL (1.0-4.8); LYMPHOCYTES % (AUTO) 14.7 % (22.0-44.0); MEAN CORPUSCULAR HEMOGLOBIN 26.7 pg (26.0-34.0); MEAN CORPUSCULAR HGB CONC 33.1 G/dL (31.0-37.0); MEAN CORPUSCULAR VOLUME 81 fL (80-100); MONOCYTES # (AUTO) 0.6 K/uL (0.1-1.0); MONOCYTES % (AUTO) 6.1 % (2.0-9.0); NEUTROPHILS # (AUTO) 7.2 K/uL (1.8-7.7); NEUTROPHILS % (AUTO) 78.1 % (40.0-70.0); PLATELET COUNT (AUTO) 329 K/uL (150-450); RED BLOOD CELL COUNT(AUTO) 4.15 MIL/uL (4.00-5.20); RED CELL DISTRIBUTION WIDTH 16.2 % (11.5-14.5)
[2020-01-24 18:09] LABS: ANION GAP 8 mmol/L (8-16); CALCIUM, TOTAL 9.5 mg/dL (8.8-10.5); CARBON DIOXIDE 27 mmol/L (22-29); CHLORIDE 103 mmol/L (98-107); CREATININE 0.89 mg/dL (0.60-1.30); GLOMERULAR FILTR. RATE CALC > 60 mL/min (>60); GLUCOSE,RANDOM 103 mg/dL (70-110); POTASSIUM 3.5 mmol/L (3.5-5.1); SODIUM SERUM 138 mmol/L (136-145); UREA NITROGEN, BLOOD 7 mg/dL (7-18)
[2020-01-24 18:22] LABS: ALANINE AMINOTRANSFERASE 44 U/L (12-78); ALBUMIN 3.7 g/dL (3.4-5.0); ALKALINE PHOSPHATASE 87 U/L (46-116); ASPARTATE AMINOTRANSFERASE 28 U/L (15-37); BILIRUBIN,TOTAL 0.2 mg/dL (0.1-1.0); HCG,QUANTITATIVE < 1 mIU/mL (0-6); TOTAL PROTEIN, SERUM 7.7 g/dL (6.4-8.2)
[2020-01-24 19:43] VITALS: BP 124/61
== END 2020-01-24 19:50 | disposition home or self-care (01) ==
LOC: EMS 16:53
DX: S90.822A Blister (nonthermal), left foot, initial encounter (principal); S90.821A Blister (nonthermal), right foot, initial encounter; X58.XXXA Exposure to other specified factors, initial encounter; Y93.89 Activity, other specified; Y92.89 Other specified places as the place of occurrence of the external cause; Y99.8 Other external cause status

== ENCOUNTER 2020-01-25 02:22 | Emergency (ER) | payer OTHER ==
[~2020-01-25] VITALS: Ht 154.9 cm; Wt 109.1 kg
[2020-01-25 03:05] LABS: BASOPHILS % (AUTO) 0.3 % (0.0-2.0); EOSINOPHILS % (AUTO) 1.8 % (1.0-6.0); HEMATOCRIT 31.4 % (36-46); HEMOGLOBIN 10.3 g/dL (12.0-16.0); LYMPHOCYTES # (AUTO) 1.4 K/uL (1.0-4.8); LYMPHOCYTES % (AUTO) 16.9 % (22.0-44.0); MEAN CORPUSCULAR HEMOGLOBIN 26.4 pg (26.0-34.0); MEAN CORPUSCULAR HGB CONC 32.8 G/dL (31.0-37.0); MEAN CORPUSCULAR VOLUME 80 fL (80-100); MONOCYTES # (AUTO) 0.5 K/uL (0.1-1.0); NEUTROPHILS # (AUTO) 6.3 K/uL (1.8-7.7); PLATELET COUNT (AUTO) 294 K/uL (150-450); RED CELL DISTRIBUTION WIDTH 16.1 % (11.5-14.5)
[2020-01-25 03:13] LABS: ANION GAP 7 mmol/L (8-16); CARBON DIOXIDE 28 mmol/L (22-29); CHLORIDE 103 mmol/L (98-107); CREATININE 0.91 mg/dL (0.60-1.30); GLOMERULAR FILTR. RATE CALC > 60 mL/min (>60); GLUCOSE,RANDOM 108 mg/dL (70-110); POTASSIUM 3.3 mmol/L (3.5-5.1); SODIUM SERUM 138 mmol/L (136-145); UREA NITROGEN, BLOOD 9 mg/dL (7-18)
[2020-01-25 03:25] LABS: ALANINE AMINOTRANSFERASE 38 U/L (12-78); ALBUMIN 3.4 g/dL (3.4-5.0); ALKALINE PHOSPHATASE 83 U/L (46-116); ASPARTATE AMINOTRANSFERASE 25 U/L (15-37); BILIRUBIN,TOTAL 0.3 mg/dL (0.1-1.0); HCG,QUANTITATIVE < 1 mIU/mL (0-6)
[2020-01-25] MEDS ORDERED: DiphenhydrAMINE HCL 50 MG CAPSULE PO ONE (03:30)
[2020-01-25] MEDS ORDERED: POTASSIUM CHLORIDE 20 MEQ ER TABLET PO ONE (03:30)
[2020-01-25] MEDS ORDERED: HALOPERIDOL 5 MG TABLET PO ONE (03:30)
[2020-01-25 03:31] LABS: AMPHET/METH SCREEN,URINE NEGATIVE (NEGATIVE); BARBITURATE SCREEN, URINE NEGATIVE (NEGATIVE); BENZODIAZEPINES SCREEN,URINE NEGATIVE (NEGATIVE); CANNABINOID SCREEN,URINE POSITIVE (NEGATIVE); COCAINE SCREEN,URINE NEGATIVE (NEGATIVE); METHADONE SCREEN, URINE NEGATIVE (NEGATIVE); OPIATE SCREEN,URINE NEGATIVE (NEGATIVE)
[2020-01-25 03:32] LABS: PHENCYCLIDINE SCREEN,URINE NEGATIVE (NEGATIVE)
[2020-01-25 06:18] VITALS: BP 112/64
== END 2020-01-25 06:20 | disposition home or self-care (01) ==
LOC: EMS 02:22
DX: F25.0 Schizoaffective disorder, bipolar type (principal); F41.9 Anxiety disorder, unspecified; F17.210 Nicotine dependence, cigarettes, uncomplicated; F12.90 Cannabis use, unspecified, uncomplicated; Z79.899 Other long term (current) drug therapy
CPT/HCPCS: 36415; 80053; 80307; 84702; 85025; 99284; 99406; G0480

== ENCOUNTER 2023-12-09 09:23 | Inpatient (IN) | payer MEDICAID ==
[~2023-12-09] VITALS: Ht 167.6 cm; Wt 61.7 kg
[~2023-12-09 09:23] MED LIST changes: -FERR-89 PO; +FERR325T27 PO; -ZIPR40CA2 PO; +ZIPR40CA38 PO
[2023-12-09 11:00] VITALS: BP 130/72; PULSE 81; RESP 18; TEMP 98.1; O2SAT 100
[2023-12-09 14:36] LABS: GLUCOMETER DEV NAME(LOC) POC.BV; POC SARS-COV2 AG, FIA NEGATIVE (NEGATIVE)
[2023-12-09] MEDS ORDERED: SERT-158 PO (18:53)
[2023-12-09 23:15] VITALS: BP 112/58; PULSE 65; RESP 18; TEMP 98.1; O2SAT 100
[2023-12-10] MEDS: LORazepam 2 MG TABLET PO PRN (04:37)
[2023-12-10 07:44] LABS: BASOPHILS % (AUTO) 0.4 % (0.0-2.0); EOSINOPHILS % (AUTO) 1.8 % (1.0-6.0); HEMATOCRIT 40.5 % (36-46); HEMOGLOBIN 13.4 g/dL (12.0-16.0); LYMPHOCYTES # (AUTO) 1.4 K/uL (1.0-4.8); LYMPHOCYTES % (AUTO) 21.2 % (22.0-44.0); MEAN CORPUSCULAR HEMOGLOBIN 29.5 pg (26.0-34.0); MEAN CORPUSCULAR HGB CONC 32.9 G/dL (31.0-37.0); MEAN CORPUSCULAR VOLUME 90 fL (80-100); MONOCYTES # (AUTO) 0.3 K/uL (0.1-1.0); MONOCYTES % (AUTO) 5.2 % (2.0-9.0); NEUTROPHILS # (AUTO) 4.6 K/uL (1.8-7.7); NEUTROPHILS % (AUTO) 71.4 % (40.0-70.0); PLATELET COUNT (AUTO) 313 K/uL (150-450); RED BLOOD CELL COUNT(AUTO) 4.53 MIL/uL (4.00-5.20); RED CELL DISTRIBUTION WIDTH 15.1 % (11.5-14.5); WHITE BLOOD COUNT (AUTO) 6.5 K/uL (4.5-11.0)
[2023-12-10 08:00] LABS: HEMOGLOBIN A1C 5.2 % (3.8-5.6)
[2023-12-10 08:15] LABS: ALANINE AMINOTRANSFERASE 22 U/L (12-78); ALBUMIN 3.6 g/dL (3.4-5.0); ALKALINE PHOSPHATASE 61 U/L (46-116); ANION GAP 11 mmol/L (8-16); ASPARTATE AMINOTRANSFERASE 16 U/L (15-37); BILIRUBIN,TOTAL 0.4 mg/dL (0.1-1.0); CALCIUM, TOTAL 9.6 mg/dL (8.8-10.5); CARBON DIOXIDE 27 mmol/L (22-29); CHLORIDE 105 mmol/L (98-107); CHOL/HDL RATIO 1.8 (3.9-5.7); CHOLESTEROL 153 mg/dL (131-200); FREE T4 (FREE THYROXINE) 1.04 ng/dL (0.76-1.46); GLOMERULAR FILTR. RATE CALC > 60 mL/min (>60); GLUCOSE,RANDOM 121 mg/dL (70-110); HCG,QUANTITATIVE < 1 mIU/mL (0-6); HDL CHOLESTEROL 84 mg/dL (40-60); LDL CHOL (CALC.) 56 mg/dL (0-130); POTASSIUM 3.4 mmol/L (3.5-5.1); SODIUM SERUM 143 mmol/L (136-145); THYROID STIMULATING HORMONE 2.72 uIU/mL (0.36-3.74); TOTAL PROTEIN, SERUM 6.9 g/dL (6.4-8.2); TRIGLYCERIDES 64 mg/dL (15-150); UREA NITROGEN, BLOOD 5 mg/dL (7-18)
[2023-12-10 08:17] VITALS: BP 122/78; PULSE 74; RESP 18; TEMP 98; O2SAT 100
[2023-12-10] MEDS ORDERED: LOPERAMIDE HCL 2 MG CAPSULE PO PRN (09:00)
[2023-12-10] MEDS ORDERED: ACETAMINOPHEN 325 MG TABLET PO PRN (09:00)
[2023-12-10] MEDS ORDERED: PETROLATUM,WHITE 28 GM JELLY TP PRN (09:00)
[2023-12-10] MEDS ORDERED: CloNIDine HCL 0.1 MG TABLET PO PRN (09:00)
[2023-12-10] MEDS ORDERED: MAG HYDROX/ALUMINUM HYD/SIMETH ES 30 ML SUSPENSION UDCUP PO PRN (09:00)
[2023-12-10] MEDS ORDERED: ONDANSETRON HCL 4 MG TABLET PO PRN (09:00)
[2023-12-10] MEDS ORDERED: IBUPROFEN 600 MG TABLET PO PRN (09:00)
[2023-12-10] MEDS ORDERED: BACITRACIN 28 GM OINTMENT TP PRN (09:00)
[2023-12-10] MEDS ORDERED: OMEPRAZOLE 20 MG CAPSULE PO PRN (09:00)
[2023-12-10] MEDS ORDERED: ALBUTEROL SULFATE HFA 90 MCG/PUFF 8 GM INHALER IH PRN (09:00)
[2023-12-10] MEDS: POTASSIUM CHLORIDE 20 MEQ ER TABLET PO ONE (12:18)
[2023-12-10] MEDS: NICOTINE POLACRILEX 4 MG LOZENGE PO PRN (12:29)
[2023-12-10] MEDS: OLANZapine 5 MG RAPDIS TABLET PO PRN (14:17)
[2023-12-10 20:33] VITALS: RESP 16
[2023-12-11] MEDS: SERTRALINE HCL 50 MG TABLET PO SCH (08:20)
[2023-12-11 09:08] VITALS: BP 109/72; PULSE 72; RESP 18; TEMP 97.7; O2SAT 100
[2023-12-11] MEDS: MAGNESIUM HYDROXIDE SUSPENSION 30 ML UDCUP PO PRN (15:04)
[2023-12-11 20:55] VITALS: BP 145/94; PULSE 76; RESP 18; TEMP 97.7; O2SAT 100
[2023-12-12 08:16] VITALS: BP 127/83; PULSE 100; RESP 16; TEMP 97.9; O2SAT 98
[2023-12-12 08:31] LABS: APPEARANCE,URINE CLEAR (CLEAR); BILIRUBIN,URINE NEGATIVE (NEGATIVE); COLOR,URINE COLORLESS (YELLOW); GLUCOSE, URINE (UA) NEGATIVE (NEGATIVE); KETONES,URINE NEGATIVE (NEGATIVE); LEUKOCYTE ESTERASE ,URINE NEGATIVE (NEGATIVE); NITRATE,URINE NEGATIVE (NEGATIVE); OCCULT BLOOD,URINE SMALL (NEGATIVE); PROTEIN,URINE NEGATIVE (NEGATIVE); SPECIFIC GRAVITIY, URINE 1.005 (1.003-1.030); UROBILINOGEN,URINE <=1.0 mg/dL (<=1.0)
[2023-12-12 08:38] LABS: AMPHET/METH SCREEN,URINE NEGATIVE (NEGATIVE); BARBITURATE SCREEN, URINE NEGATIVE (NEGATIVE); BENZODIAZEPINES SCREEN,URINE NEGATIVE (NEGATIVE); CANNABINOID SCREEN,URINE POSITIVE (NEGATIVE); COCAINE SCREEN,URINE NEGATIVE (NEGATIVE); METHADONE SCREEN, URINE NEGATIVE (NEGATIVE); OPIATE SCREEN,URINE NEGATIVE (NEGATIVE); PHENCYCLIDINE SCREEN,URINE NEGATIVE (NEGATIVE)
[2023-12-12 08:41] LABS: ALCOHOL, URINE DRUG SCREEN NEGATIVE (NEGATIVE)
[2023-12-12 08:55] LABS: RBC,URINE 0-2 /HPF (0-2)
[2023-12-12 08:56] LABS: BACTERIA,URINE None Seen /HPF (None Seen); SQUAMOUS EPITHELIAL CELL,UR Few /LPF (None Seen); WBC,URINE None Seen /HPF (0-5)
[2023-12-12] MEDS: RisperiDONE 2 MG TABLET PO SCH (10:15)
[2023-12-12] MEDS: DOCUSATE SODIUM 100 MG CAPSULE PO PRN (12:46)
[2023-12-12] MEDS: PALIPERIDONE PALMITATE 234 MG/1.5 ML SYRINGE IM SCH (16:02)
[2023-12-12 20:05] VITALS: BP 130/89; PULSE 74; RESP 18; TEMP 97.5; O2SAT 100
[2023-12-13 08:09] VITALS: BP 111/69; PULSE 83; RESP 18; TEMP 98; O2SAT 100
[2023-12-13 20:07] VITALS: BP 108/67; PULSE 66; RESP 18; TEMP 96.8; O2SAT 100
[2023-12-14] MEDS: ZOLPIDEM TARTRATE 10 MG TABLET PO PRN (00:43)
[2023-12-14] MEDS: BENZOCAINE/MENTHOL LOZENGE PO PRN (03:39)
[2023-12-14 08:08] VITALS: BP 122/55; PULSE 100; RESP 16; TEMP 97.6; O2SAT 99
== END 2023-12-14 19:44 | disposition home or self-care (01) | DRG 750 ==
LOC: B3A 21:03
PROVIDERS: ADMIT Psychiatry & Neurology Psychiatry; ATTEND Psychiatry & Neurology Psychiatry
DX: F20.9 Schizophrenia, unspecified (principal); F41.9 Anxiety disorder, unspecified; Z20.822 Contact with and (suspected) exposure to COVID-19; G47.00 Insomnia, unspecified; K59.00 Constipation, unspecified; Z72.0 Tobacco use
CPT/HCPCS: 80053; 80061; 80307; 81001; 83036; 84702; 85025; 86592; Q9967